=== PATIENT | male | born 1975 | race Caucasian/White ===

== ENCOUNTER → 2019-06-24 | Outpatient (CLI) | payer OTHER | END | disposition home or self-care (01) | LOC: LABWHC1 09:14 | PROVIDERS: ATTEND Family Medicine | DX: Z11.59 Encounter for screening for other viral diseases (principal) | CPT/HCPCS: 87635 ==

== ENCOUNTER 2022-02-27 00:16 | Observation (INO) | payer OTHER ==
[2022-02-27] MEDS ORDERED: DIPH,PERTUS(ACELL)TETVAC-LF 0.5 ML VIAL IM ONE (00:22)
[2022-02-27] MEDS ORDERED: LIDOCAINE 1% INJ 10MG/ML (30 ML VIAL-PF) SQ ONE (00:22)
[2022-02-27] MEDS ORDERED: KETOROLAC 15 MG/ML 1 ML VIAL IVP STA (00:23)
--- NOTE | 2022-02-27 01:06 | CT ---
EXAMINATION TYPE: CT brain saundraine wo con DATE OF EXAM: 02/27/2022 COMPARISON: None HISTORY: ETOH, pt fell & hit head on planter box, lac w/ exposed bone CT DLP: 1556.2 mGycm Automated exposure control for dose reduction was used. Images of the brain and cervical spine obtained with no contrast. There is large left frontal scalp hematoma. The ventricles have normal size. There is no mass effect or midline shift. No sign of intracranial hemorrhage. No evidence of skull fracture. Skull base is in tact. There is normal aeration of the mastoid sinuses. There is fluid level left maxillary sinus. The re is a blowout fracture of the left bony orbit with depression of the floor of the left bony orbit a nd herniation of orbital fat into the left maxillary sinus. The cervical vertebra have normal alignment. Disc spaces are fairly normal. Cervical facet joints siddharth ear intact. No significant disc space narrowing. No compression fracture. No subluxation. Prevertebra l soft tissues are intact. The skull base is intact. IMPRESSION: Negative CT scan of the cervical spine. No fracture. No acute intracranial abnormality. Blowout fracture of the floor of the left bony orbit. Large left frontal parietal scalp hematoma.
--- NOTE | 2022-02-27 01:59 | ED ---
Fall HPI - General Chief Complaint: Wound/Laceration Stated Complaint: Head Laceration Time Seen by Provider: 02/27/22 00:19 Source: patient, family, EMS, RN notes reviewed Mode of arrival: EMS - History of Present Illness Initial Comments: This is a 46-year-old male who presents to the emergency department for a head injury. Patient was intoxicated and stumbled around, causing him to fall forward, and land on a ceramic plantar. He subsequently acquired a laceration to his forehead. He did not lose consciousness and he does not take any blood thinners. He is unsure how much he had to drink. He is not in any significant pain at this time. Denies any fevers, chills, sore throat, cough, dyspnea, chest pain, palpitations, abdominal pain, nausea, vomiting, diarrhea, or back pain. MD Complaint: fall Fall From: standing Place Fall Occurred: home - Related Data Home Medications Medication Instructions Recorded Confirmed No Known Home Medications 02/27/22 02/27/22 Allergies Allergy/AdvReac Type Severity Reaction Status Date / Time No Known Allergies Allergy Verified 02/27/22 12:33 Review of Systems ROS Statement: Those systems with pertinent positive or pertinent negative responses have been documented in the HPI. ROS Other: All systems not noted in ROS Statement are negative. Past Medical History - Past Family History family Additional Family Medical History / Comment(s): no cad General Exam General appearance: alert, in no apparent distress Head exam: Present: other (10 cm laceration to the forehead with active bleeding and visible skull.) Eye exam: Present: PERRL, EOMI, other (Orbital and periorbital swelling with overlying ecchymosis.) Respiratory exam: Present: normal lung sounds bilaterally. Absent: respiratory distress, wheezes, rales, rhonchi, stridor Cardiovascular Exam: Present: regular rate, normal rhythm, normal heart sounds. Absent: systolic murmur, diastolic murmur, rubs, gallop, clicks Neurological exam: Present: alert Psychiatric exam: Present: normal affect, normal mood Course Vital Signs 02/27/22 02/27/22 02/27/22 00:21 00:48 01:30 Temperature 98 F 98.4 F Pulse Rate 72 101 H 110 H Pulse Rate [ Pulse Oximetery ] Respiratory 18 16 16 Rate Blood Pressure 155/86 180/142 168/124 Blood Pressure [Left Arm] O2 Sat by Pulse 99 99 98 Oximetry 02/27/22 02/27/22 02/27/22 02:00 02:28 06:07 Temperature Pulse Rate 108 H 98 112 H Pulse Rate [ Pulse Oximetery ] Respiratory 16 16 16 Rate Blood Pressure 125/91 122/99 97/66 Blood Pressure [Left Arm] O2 Sat by Pulse 97 98 99 Oximetry 02/27/22 06:33 Temperature 97.3 F L Pulse Rate Pulse Rate [ 115 H Pulse Oximetery ] Respiratory 16 Rate Blood Pressure Blood Pressure 101/62 [Left Arm] O2 Sat by Pulse 98 Oximetry Procedures - Laceration Laceration #1 Consent Obtained: verbal consent Indication: laceration Site: face Size (cm): 10 Description: linear, flap Depth: simple, single layer Anesthetic Used: lidocaine 1% Anesthesia Technique: local infiltration Amount (mls): 10 Pre-repair: irrigated extensively Type of Sutures: nylon Size of Sutures: 5-0 Number of Sutures: 26 Technique: simple, interrupted Medical Decision Making - Medical Decision Making This is a 46-year-old male who presents to the emergency department for a head injury. Was pt. sent in by a medical professional or institution? @ -No Did you speak to anyone other than the patient for history? @ -EMS Did you review nursing and triage notes? @ -Yes, and I agree, it is accurate with regards to the patient's symptoms. Were old charts reviewed? @ -No Differential Diagnosis? @ Differential Diagnosis Head Injury: -Contusion, hematoma, intracranial hemorrhage, skull fracture, whiplash, concussion, this is not meant to be an all-inclusive list. CT interpreted by me (1pt min.)? @ -Computed tomography scan of the brain and c-spine obtained. My interpretation of the computed tomography scan of the brain identifies no acute intracranial hemorrhage, there is an orbital blowout fracture on the left side. My interpretation of the computed tomography scan of the cervical spine identifies no acute fractures. What testing was considered but not performed? (CT, X-rays, U/S, labs)? Why? @ -None What meds were considered but not given? Why? @ -None Did you discuss the management of the patient with other professionals? @ -Yes, Dr. Del Castillo who accepts the patient for a trauma admission and Dr. Cain who will medically manage the patient, especially with regards to the CIWA protocol. Did you reconcile home meds? @ -No Was smoking cessation discussed for >3mins.? @ -No Was critical care preformed (if so, how long)? @ -No Were there social determinants of health that impacted care today? How? (Homelessness, low income, unemployed, alcoholism, drug addiction, transportat ion, low edu. Level, literacy, decrease access to med. care, halfway, rehab)? @ -Alcoholism Was there de-escalation of care discussed even if they declined? (Discuss DNR or withdrawal of care, Hospice)? @ -No What co-morbidities impacted this encounter? (DM, HTN, Smoking, COPD, CAD, Cancer, CVA, Hep., AIDS, mental health diagnosis, sleep apnea, morbid obesity)? @ -HTN Was patient admitted / discharged? @ -Admitted. Computed tomography scan of the brain and c-spine obtained, with findings consistent with a left orbital blowout fracture. The laceration to the forehead was sutured. His tetanus status was updated. BAT was 0.12. After the sutures were placed, whenever the patient would sit up, he became disoriented followed by a couple of seconds of unresponsiveness. Patient appears to be having orthostatic episodes, which were occurring anytime he tried to sit up. Given the concern for the patient's safety with the orthostatic episodes, patient will be admitted for observation and management with IV fluids. Because this was a fall, patient will be admitted to trauma. Medicine consulted for medical management, including the CIWA protocol. Undiagnosed new problem with uncertain prognosis? @ -None Drug Therapy requiring intensive monitoring for toxicity (Heparin, Nitro, Insulin, Cardizem)? @ -None Were any procedures done? @ -Yes, laceration repair with sutures. Diagnosis/symptom? @ -Forehead laceration Acute, or Chronic, or Acute on Chronic? @ -Acute Uncomplicated (without systemic symptoms) or Complicated (systemic symptoms)? @ -Uncomplicated Side effects of treatment? @ -None Exacerbation, Progression, or Severe Exacerbation] @ -Not applicable Poses a threat to life or bodily function? @ -No Diagnosis/symptom? @ -Alcohol intoxication Acute, or Chronic, or Acute on Chronic? @ -Acute Uncomplicated (without systemic symptoms) or Complicated (systemic symptoms)? @ -Complicated Side effects of treatment? @ -None Exacerbation, Progression, or Severe Exacerbation] @ -Not applicable Poses a threat to life or bodily function? @ -Yes Diagnosis/symptom? @ -Fall Acute, or Chronic, or Acute on Chronic? @ -Acute Uncomplicated (without systemic symptoms) or Complicated (systemic symptoms)? @ -Uncomplicated Side effects of treatment? @ -None Exacerbation, Progression, or Severe Exacerbation] @ -Not applicable Poses a threat to life or bodily function? @ -Yes This case was discussed in detail with the attending ED physician, Dr. Cordero. Presentation, findings, and treatment plan discussed in detail as well. - Lab Data Result diagrams: 02/27/22 04:34 02/27/22 04:34 - Radiology Data Radiology results: report reviewed, image reviewed Disposition Clinical Impression: Laceration, Fall, Head injury Disposition: ADMITTED IP TO THIS HOSP
[2022-02-27] MEDS ORDERED: SODIUM CHLORIDE 0.9% 1,000 ML IV STA ×2 (04:14)
[2022-02-27] MEDS ORDERED: KETOROLAC 15 MG/ML 1 ML VIAL IVP PRN (04:17)
[2022-02-27] MEDS ORDERED: ONDANSETRON 4 MG/2 ML VIAL IVP PRN (04:17)
[2022-02-27] MEDS ORDERED: NALOXONE 0.4 MG/ML 1 ML VIAL IV PRN (04:17)
[2022-02-27] MEDS ORDERED: LORazepam 2 MG/ML INJ IV PRN (04:18)
[2022-02-27] MEDS ORDERED: LORazepam 1 MG TAB PO PRN ×4 (04:18)
[2022-02-27] MEDS ORDERED: LORazepam 0.5 MG TAB PO PRN (04:18)
[2022-02-27] MEDS ORDERED: THIAMINE 100 MG/ML 2 ML VIAL IM STA (04:18)
--- NOTE | 2022-02-27 04:44 | P.HPIM ---
History of Present Illness H&P Date: 02/27/22 Chief Complaint: fall and head laceration 46 year old male with hypertension not currently taking any meds patient coming in after sustaining a fall and hitting ceramic planter. he was brought to the hospital due to bleeding. he denies any focal neuro deficits, he reports discomfort at site of injury , patient required multiple stitches to the area. imaging with brain CT showed blowout fracture of the floor left bony orbit . patient admits to occasional heavy drinking, he had half a pint and few shots today. he denies any other medical concerns or active medical issues. he denies any chest pain , trouble breathing, denies any new focal neuro deficits. no blood work available at this time patient denies any illicit drugs patient feeling dizzy when sitting up, Im concerned regarding the amount of bleeding he had in addition to dehydration from heavy drinking Review of Systems Pertinent positives as noted in HPI. All other systems were reviewed and are negative Past Medical History Past Medical History: Hypertension - Past Family History family Additional Family Medical History / Comment(s): no cad Medications and Allergies Allergies Allergy/AdvReac Type Severity Reaction Status Date / Time No Known Allergies Allergy Verified 02/27/22 00:24 Physical Exam Vitals: Vital Signs Temp Pulse Resp BP Pulse Ox 02/27/22 02:28 98 16 122/99 98 02/27/22 02:00 108 H 16 125/91 97 02/27/22 01:30 110 H 16 168/124 98 02/27/22 00:48 98.4 F 101 H 16 180/142 99 02/27/22 00:21 98 F 72 18 155/86 99 Intake and Output 02/26/22 02/26/22 02/27/22 14:59 22:59 06:59 Other: Weight 92.533 kg Constitutional: No acute distress, conversant, pleasant Eyes: left eye swollen shut with bruising, right Pupils round reactive to light ENMT: NC/ significant trauma to the head, resulting in large frontoparietal scalp laceration requiring multiple stitches , with significant amount of bleeding, and large echymosis over left eye which is close shut. Oropharynx clear, no erythema, or exudates Neck: Supple, no masses, or JVD No carotid bruits No thyromegaly Lungs: Clear to auscultation Clear to percussion Normal respiratory effort, no accessory muscle use Cardiovascular: Heart regular in rate and rhythm, No murmurs, gallops, or rubs No peripheral edema Abdominal: Soft Nontender, no guarding, rebound or rigidity Abdomen moving with respiration Normoactive bowel sounds No hepatomegaly, No splenomegaly No palpable mass No abdominal wall hernia noted Skin: laceration of the scalp , otherwise Normal temperature, tone, texture, turgor Extremities: No digital cyanosis No clubbing Pedal pulses intact and symmetrical Radial pulses intact and symmetrical No calf tenderness Psychiatric: Alert and oriented to person, place and time Appropriate affect fair judgement Neuro Muscles Strength 5/5 in all 4 extremities Sensation to light touch grossly present throughout Cranial nerves II-XII grossly intact Lymphatics: no palpable cervical or supraclavicular lymph nodes Assessment and Plan Assessment: blowout fracture of the left bony orbit alcohol intoxication , fall laceration of the left frontoparietal scalp s/p suturing in the ED. management per trauma surgery fall precautions IVF hydration with normal saline check CBC, concerns regarding significant amount of bleeding from large scalp injury check electrolytes, alcohol level , and urine drug screen check orthostatic vitals monitor for alcohol withdrawal symptoms Benzo PRN per ciwa thiamine fall precautions full code DVT PPX mechanical thank you for this consultation
[2022-02-27 04:53] LABS: Basophils # (A) 0.1 k/uL (0-0.2); Basophils % (A) 1 %; Eosinophils % (A) 0 %; HCT 34.3 % (39.0-53.0); HGB 11.8 gm/dL (13.0-17.5); Lymphocytes # (A) 1.2 k/uL (1.0-4.8); Lymphocytes % (A) 10 %; MCH 30.5 pg (25.0-35.0); MCHC 34.4 g/dL (31.0-37.0); MCV 88.7 fL (80.0-100.0); Monocytes # (A) 0.5 k/uL (0-1.0); Monocytes % (A) 5 %; Neutrophils % (A) 84 %; Platelet Count 274 k/uL (150-450); RBC 3.87 m/uL (4.30-5.90); RDW 12.8 % (11.5-15.5)
[2022-02-27 05:06] LABS: ALT 81 U/L (4-49); AST 85 U/L (17-59); African American GFR (CKD) >90 (>60 ml/min/1.73 sqM); Albumin 2.9 g/dL (3.5-5.0); Alkaline Phosphatase 58 U/L (38-126); Anion Gap 7 mmol/L; Blood Urea Nitrogen 6 mg/dL (9-20); Calcium 7.3 mg/dL (8.4-10.2); Carbon Dioxide 20 mmol/L (22-30); Chloride 112 mmol/L (98-107); Glucose 159 mg/dL (74-99); Non-African American GFR(CKD) 87 (>60 ml/min/1.73 sqM); Sodium 139 mmol/L (137-145); Total Bilirubin 0.5 mg/dL (0.2-1.3); Total Protein 5.7 g/dL (6.3-8.2)
[2022-02-27 05:32] LABS: Alcohol 204 mg/dL
--- NOTE | 2022-02-27 13:28 | P.PN ---
Progress Note - Text Progress Note Date: 02/27/22 Hospitalist Interval Note Patient seen and examined at bedside. Vital signs reviewed General: non toxic, no distress, appears at stated age Derm: warm, dry Head: Sutured laceration on frontal hiatal scalp Eyes: Left eye periorbital ecchymosis Mouth: no lip lesion, mucus membranes moist Cardiovascular: S1S2 reg, no murmur, positive posterior tibial pulse bilateral, Lungs: CTA bilateral, no rhonchi, no rales , no accessory muscle use Abdominal: soft, nontender to palpation, no guarding, no appreciable organomegaly Ext: no gross muscle atrophy, no edema, no contractures Neuro: CN II-XI grossly intact, no focal neuro deficits Psych: Alert, oriented, appropriate affect Assessment/Plan: blowout fracture of the left bony orbit alcohol intoxication , fall laceration of the left frontoparietal scalp s/p suturing in the ED. management per trauma surgery - iv fluids - thiamine - benzo PRN per CIWA This is an update note for patient. There is no charge associated with this note.
[2022-02-27] MEDS: ACETAMINOPHEN TAB 325 MG TAB PO PRN ×2 (13:34→20:40)
[2022-02-27 13:44] VITALS: RESP 18
--- NOTE | 2022-02-27 16:06 | P.GSHP ---
History of Present Illness H&P Date: 02/27/22 REASON FOR ADMISSION: Alcohol intoxication with status post fall, head trauma HISTORY OF PRESENT ILLNESS: The patient is a 46 year old male who presented to the emergency room with bleeding from a scalp after falling ground-level at home due to alcohol intoxication. Patient has minimal recollection of where he fell at home. Patient in the emergency room had repair of his scalp laceration with subsequent hematoma. Patient reports developing a black eye of the left eye. Reports he can see through his left eye. "I will stop drinking." Patient was admitted due to persistent hypotension after attempting to sit up. PAST MEDICAL HISTORY: See list and reviewed PAST SURGICAL HISTORY: See list and reviewed MEDICATIONS: See list and reviewed ALLERGIES: See list and reviewed SOCIAL HISTORY: See list and reviewed FAMILY HISTORY: See list and reviewed REVIEW OF ORGAN SYSTEMS: CONSTITUTIONAL: No fevers or chills. No recent weight loss. EYES: Denies any trouble with vision. No glasses. HEENT: No difficulties with hearing. No nosebleeds. No difficulty swallowing. RESPIRATORY: Denies pneumonia. Denies any troubles with breathing or dyspnea on exertion. CARDIOVASCULAR: Denies any chest pain, palpitations, or recent heart attacks. Has hypertension. GASTROINTESTINAL: Has alcohol abuse disorder. GENITOURINARY: Denies any blood in urine or increased urinary frequency. NEUROLOGICAL: Denies any numbness or tingling along the distal extremities. No seizure disorders or headaches. MUSCULOSKELETAL: Denies any back pain, stiffness or joint arthritis. SKIN: No current skin cancer. No rash. PSYCHIATRIC: Denies current depression or suicidal thoughts. ENDOCRINE: Denies current thyroid disorders. Denies any blood sugar glucose intolerance. HEME/LYMPHATIC: Denies any lumps and bumps around the neck. No recent deep venous thrombosis. ALLERGY/IMMUNOLOGY: No immunoglobulin therapy. No immune deficiencies. BREAST: Denies current breast lumps, pain or nipple discharge. PHYSICAL EXAM: VITALS: Reviewed CONSTITUTIONAL: Well developed and in no acute distress. EYES: Ecchymosis over her left eye in orbit completely closed. Patient able to open his left eye on its own. Denies eye pain. HEAD, EARS, NOSE, THROAT: Moist buccal mucosa. Multiple lacerations along the face, forehead, cheeks with ecchymosis at the left side. Scalp hematoma NECK: Cervical spine without tenderness. RESPIRATORY: Non-labored respirations and equal bilateral excursions. No gross wheezes. CARDIOVASCULAR: Palpable 2+ radial pulses. ABDOMEN: Nontender. LYMPH: No neck lymphadenopathy. MUSCULOSKELETAL: Nail and fingers with good capillary refill. SKIN: Warm and well perfused with good skin turgor. NEUROLOGIC: Cranial nerves II through XII grossly intact. No focal or latera lizing signs. PSYCH: Appropriate affect. Alert and oriented to person, place and time. Displays appropriate insight. CLINCAL LABS: Reviewed. 12.0. Hemoglobin 11.8. LFTs elevated. EtOH elevated 204 IMAGING: Independently reviewed. CT of the brain without epidural subdural hematoma. This is my independent interpretation. RADIOLOGY: Report reviewed CT brain demonstrates no spinal injury. Also presence of scalp hematoma. No intracranial bleed. Left orbit fracture ASSESSMENT: 1. Status post ground-level fall due to increased intoxication 2. Acute alcohol intoxication 3. Left orbit fracture 4. Scalp hematoma PLAN: 1. IV fluid hydration. 2. Medicine consulted for management of alcohol withdrawal and delirium tremens 3. Consultation services regarding left orbital fracture 4. Repeat CBC and CMP due to abnormalities Thank you for this kind consultation. Past Medical History Past Medical History: Hypertension History of Any Multi-Drug Resistant Organisms: None Reported Past Anesthesia/Blood Transfusion Reactions: No Reported Reaction Smoking Status: Former smoker Past Alcohol Use History: Heavy, Occasional Additional Past Alcohol Use History / Comment(s): pt states he doesnt drink every day but when he does he "drinks the heavy stuff" States he quit smoking in 2019 - Past Family History family Additional Family Medical History / Comment(s): no cad Medications and Allergies Home Medications Medication Instructions Recorded Confirmed Type No Known Home Medications 02/27/22 02/27/22 History Allergies Allergy/AdvReac Type Severity Reaction Status Date / Time No Known Allergies Allergy Verified 02/27/22 12:33 Surgical - Exam Vital Signs Temp Pulse Resp BP Pulse Ox 98 F 72 18 155/86 99 02/27/22 00:21 02/27/22 00:21 02/27/22 00:21 02/27/22 00:21 02/27/22 00:21 Results - Labs 02/27/22 04:34 02/27/22 04:34 Abnormal Lab Results - Last 24 Hours (Table) 02/27/22 02/27/22 Range/Units 04:34 04:34 WBC 12.0 H (3.8-10.6) k/uL RBC 3.87 L (4.30-5.90) m/uL Hgb 11.8 L (13.0-17.5) gm/dL Hct 34.3 L (39.0-53.0) % Neutrophils # 10.0 H (1.3-7.7) k/uL Chloride 112 H (98-107) mmol/L Carbon Dioxide 20 L (22-30) mmol/L BUN 6 L (9-20) mg/dL Glucose 159 H (74-99) mg/dL Calcium 7.3 L (8.4-10.2) mg/dL AST 85 H (17-59) U/L ALT 81 H (4-49) U/L Total Protein 5.7 L (6.3-8.2) g/dL Albumin 2.9 L (3.5-5.0) g/dL Serum Alcohol 204 H* mg/dL Diabetes panel 02/27/22 Range/Units 04:34 Sodium 139 (137-145) mmol/L Potassium 4.0 (3.5-5.1) mmol/L Chloride 112 H (98-107) mmol/L Carbon Dioxide 20 L (22-30) mmol/L BUN 6 L (9-20) mg/dL Creatinine 1.04 (0.66-1.25) mg/dL Glucose 159 H (74-99) mg/dL Calcium 7.3 L (8.4-10.2) mg/dL AST 85 H (17-59) U/L ALT 81 H (4-49) U/L Alkaline Phosphatase 58 (38-126) U/L Total Protein 5.7 L (6.3-8.2) g/dL Albumin 2.9 L (3.5-5.0) g/dL Calcium panel 02/27/22 Range/Units 04:34 Calcium 7.3 L (8.4-10.2) mg/dL Albumin 2.9 L (3.5-5.0) g/dL Pituitary panel 02/27/22 Range/Units 04:34 Sodium 139 (137-145) mmol/L Potassium 4.0 (3.5-5.1) mmol/L Chloride 112 H (98-107) mmol/L Carbon Dioxide 20 L (22-30) mmol/L BUN 6 L (9-20) mg/dL Creatinine 1.04 (0.66-1.25) mg/dL Glucose 159 H (74-99) mg/dL Calcium 7.3 L (8.4-10.2) mg/dL Adrenal panel 02/27/22 Range/Units 04:34 Sodium 139 (137-145) mmol/L Potassium 4.0 (3.5-5.1) mmol/L Chloride 112 H (98-107) mmol/L Carbon Dioxide 20 L (22-30) mmol/L BUN 6 L (9-20) mg/dL Creatinine 1.04 (0.66-1.25) mg/dL Glucose 159 H (74-99) mg/dL Calcium 7.3 L (8.4-10.2) mg/dL Total Bilirubin 0.5 (0.2-1.3) mg/dL AST 85 H (17-59) U/L ALT 81 H (4-49) U/L Alkaline Phosphatase 58 (38-126) U/L Total Protein 5.7 L (6.3-8.2) g/dL Albumin 2.9 L (3.5-5.0) g/dL Assessment and Plan (1) Scalp hematoma Current Visit: Yes Status: Acute Code(s): S00.03XA - CONTUSION OF SCALP, INITIAL ENCOUNTER SNOMED Code(s): 723536197 (2) Scalp laceration Current Visit: Yes Status: Acute Code(s): S01.01XA - LACERATION WITHOUT FO REIGN BODY OF SCALP, INITIAL ENCOUNTER SNOMED Code(s): 330284002 (3) Left orbit fracture Current Visit: Yes Status: Acute Code(s): S02.85XA - FRACTURE OF ORBIT, UNSPECIFIED, INIT SNOMED Code(s): 85963623 (4) Acute alcohol intoxication Current Visit: Yes Status: Acute Code(s): F10.929 - ALCOHOL USE, UNSPECIFIED WITH INTOXICATION, UNSPECIFIED SNOMED Code(s): 9549610576 (5) Elevated LFTs Current Visit: Yes Status: Acute Code(s): R79.89 - OTHER SPECIFIED ABNORMAL FINDINGS OF BLOOD CHEMISTRY SNOMED Code(s): 873872336 (6) Fall from ground level Current Visit: Yes Status: Acute Code(s): W18.30XA - FALL ON SAME LEVEL, UNSPECIFIED, INITIAL ENCOUNTER SNOMED Code(s): 64481862 (7) Head injury Current Visit: Yes Status: Acute Code(s): S09.90XA - UNSPECIFIED INJURY OF HEAD, INITIAL ENCOUNTER SNOMED Code(s): 26546452
[2022-02-27 23:12] LABS: Urine Alcohol Positive (Negative); Urine Barbiturate Negative (Negative); Urine Cocaine Negative (Negative); Urine Methadone Negative (Negative); Urine Opiates Negative (Negative); Urine Phencyclidine Negative (Negative)
[2022-02-28] MEDS: ACETAMINOPHEN TAB 325 MG TAB PO PRN (03:17)
[2022-02-28] MEDS ORDERED: THIAMINE 100 MG TAB PO SCH (09:00)
[2022-02-28 10:03] LABS: Basophils # (A) 0.1 k/uL (0-0.2); Basophils % (A) 1 %; Eosinophils % (A) 1 %; HCT 27.8 % (39.0-53.0); Lymphocytes # (A) 1.8 k/uL (1.0-4.8); Lymphocytes % (A) 28 %; MCV 88.3 fL (80.0-100.0); Mean Platelet Volume 9.2; Monocytes # (A) 0.4 k/uL (0-1.0); Monocytes % (A) 7 %; Neutrophils % (A) 62 %; Platelet Count 167 k/uL (150-450); RBC 3.15 m/uL (4.30-5.90); RDW 12.9 % (11.5-15.5); WBC 6.4 k/uL (3.8-10.6)
[2022-02-28 10:17] LABS: ALT 56 U/L (4-49); AST 43 U/L (17-59); African American GFR (CKD) >90 (>60 ml/min/1.73 sqM); Albumin 3.3 g/dL (3.5-5.0); Albumin/Globulin Ratio 1.1; Alcohol <10 mg/dL; Alkaline Phosphatase 60 U/L (38-126); Anion Gap 4 mmol/L; Blood Urea Nitrogen 7 mg/dL (9-20); Carbon Dioxide 29 mmol/L (22-30); Chloride 104 mmol/L (98-107); Globulin 2.9 g/dL; Glucose 152 mg/dL (74-99); HGB 9.4 gm/dL (13.0-17.5); Non-African American GFR(CKD) >90 (>60 ml/min/1.73 sqM); Potassium 3.5 mmol/L (3.5-5.1); Sodium 137 mmol/L (137-145); Total Bilirubin 1.2 mg/dL (0.2-1.3); Total Protein 6.2 g/dL (6.3-8.2)
--- NOTE | 2022-02-28 12:22 | P.PN ---
Subjective Progress Note Date: 02/28/22 CHIEF COMPLAINT: Alcohol intoxication status post fall with head trauma HISTORY OF PRESENT ILLNESS: Patient lying in bed comfortably. He reports that his pain is controlled. He had alcohol intoxication with fall and head trauma. He had evidence of a left orbital fracture. Consult has been switched to ophthalmology. Patient is unable to open the left eye. He denies any new pain. Denies any nausea vomiting. Afebrile. Tachycardia has improved. BP elevated. WBC is down from 12-6.4 hemoglobin is down from 11.8-9.4 platelets are 167 sons 137 potassium is 3.5 creatinine 0.76 alcohol level is down from 204-10 PHYSICAL EXAM: VITAL SIGNS: Reviewed GENERAL: Well-developed in no acute distress. HEENT: Patient has a laceration on the forehead with sutures. His left eye is closed shut with bruising. There is also bruising noted under the right eye. Head is atraumatic, normocephalic. Hears conversational speech. No nasal drainage. NECK: Supple without lymphadenopathy. CHEST: Non-labored respirations and equal bilateral excursions. CARDIOVASCULAR: Palpable 2+ radial pulses. ABDOMEN: Soft. Nondistended. Nontender. MUSCULOSKELETAL: No clubbing or cyanosis. NEUROLOGIC: No focal or lateralizing signs. Cranial nerves II through XII grossly intact. PSYCH: Appropriate affect. Alert and oriented to person, place and time. SKIN: Well perfused. Good skin turgor. ASSESSMENT: 1. Status post ground-level fall due to increased intoxication 2. Acute alcohol intoxication 3. Left orbit fracture 4. Scalp hematoma PLAN: -Awaiting ophthalmology evaluation regarding left orbital fracture -Continue IV fluids -Continue CIWA protocol for alcohol withdrawal -Continue ice packs as needed -Continue supportive care -Anticipate discharge possibly today if cleared by ophthalmology Physician Human Resources Safety Manager note has been reviewed by physician. Signing provider agrees with the documented findings, assessment, and plan of care. CHIEF COMPLAINT: Alcohol intoxication with status post fall, head trauma HISTORY OF PRESENT ILLNESS: The patient is a 46 year old male admitted to the hospital for head trauma status post fall. This morning, he feels well. No reports of abdominal pain. REVIEW OF ORGAN SYSTEMS: GASTROINTESTINAL: Has alcohol abuse disorder. MUSCULOSKELETAL: Denies any back pain, stiffness or joint arthritis. PSYCHIATRIC: Denies current depression or suicidal thoughts. PHYSICAL EXAM: VITALS: Reviewed CONSTITUTIONAL: Well developed and in no acute distress. EYES: Ecchymosis over her left eye in orbit completely closed. Patient able to open his left eye on its own. Denies eye pain. Ecchymosis over her right eye HEAD, EARS, NOSE, THROAT: Moist buccal mucosa. Multiple lacerations along the face, forehead, cheeks with ecchymosis at the left side. Scalp hematoma NECK: Cervical spine without tenderness. RESPIRATORY: Non-labored respirations and equal bilateral excursions. No gross wheezes. CARDIOVASCULAR: Palpable 2+ radial pulses. ABDOMEN: Nontender. MUSCULOSKELETAL: Nail and fingers with good capillary refill. SKIN: Warm and well perfused with good skin turgor. NEUROLOGIC: Cranial nerves II through XII grossly intact. No focal or l ateralizing signs. PSYCH: Appropriate affect. Alert and oriented to person, place and time. Displ ays appropriate insight. CLINCAL LABS: Reviewed. Repeat labs demonstrate WBC normal. Hemoglobin decline 11.8 down to 9.4. LFTs improving. EtOH negative. ASSESSMENT: 1. Status post ground-level fall due to increased intoxication 2. Acute alcohol intoxication 3. Left orbit fracture 4. Scalp hematoma PLAN: 1. Consultation placed to ophthalmology for left orbit fracture 2. Alcohol abstinence reviewed 3. Discharge pending outpatient follow-up with baby registry sales consultant regarding left orbit fracture 4. Follow-up with PCP for transition of care Objective - Vital Signs Vital signs: Vital Signs Temp 98 F 02/28/22 07:00 Pulse 98 02/28/22 08:00 Resp 18 02/28/22 08:00 BP 179/99 02/28/22 07:00 Pulse Ox 96 02/28/22 07:00 FiO2 Intake & Output 02/27/22 02/28/22 02/28/22 18:59 06:59 18:59 Intake Total 120 Output Total 1000 Balance -880 Intake: Oral 120 Output: Urine 1000 Other: # Voids 2 3 - Labs CBC & Chem 7: 02/28/22 09:52 02/28/22 09:52 Labs: Abnormal Lab Results - Last 24 Hours (Table) 02/27/22 02/28/22 02/28/22 Range/Units 17:56 09:52 09:52 RBC 3.15 L (4.30-5.90) m/uL Hgb 9.4 L D (13.0-17.5) gm/dL Hct 27.8 L (39.0-53.0) % BUN 7 L (9-20) mg/dL Glucose 152 H (74-99) mg/dL Calcium 8.0 L (8.4-10.2) mg/dL ALT 56 H (4-49) U/L Total Protein 6.2 L (6.3-8.2) g/dL Albumin 3.3 L (3.5-5.0) g/dL Urine Alcohol Positive A (Negative)
--- NOTE | 2022-02-28 12:53 | P.PN ---
Subjective Progress Note Date: 02/28/22 Subjective: Patient seen and examined at bedside. No acute events overnight. He claims that the pain is a lot better. He denies any anxiety or tremulousness. He denies any chest pain, shortness of breath, abdominal pain, nausea, vomiting, diarrhea, constipation, or urinary complaints. Pertinent positives and negatives as discussed above, a complete review of systems was performed and all other systems are negative. Vitals Signs Reviewed. General: non toxic, no distress, appears at stated age Derm: warm, dry Head: Sutured laceration on frontal hiatal scalp Eyes: Left eye periorbital ecchymosis Mouth: no lip lesion, mucus membranes moist Cardiovascular: S1S2 reg, no murmur, positive posterior tibial pulse bilateral, Lungs: CTA bilateral, no rhonchi, no rales , no accessory muscle use Abdominal: soft, nontender to palpation, no guarding, no appreciable organomegaly Ext: no gross muscle atrophy, no edema, no contractures Neuro: CN II-XI grossly intact, no focal neuro deficits Psych: Alert, oriented, appropriate affec Assessment and Plan: blowout fracture of the left bony orbit alcohol intoxication , fall laceration of the left frontoparietal scalp s/p suturing in the ED. - management per trauma surgery - s/p IV fluids - thiamine - benzo PRN per CIWA - Pending ophthalmology evaluation History of hypertension -Not on any medications -current BP trending up likely 2/2 withdrawal and pain -needs outpatient follow up Patient medically optimized for discharge home. Patient will follow up closely with alcohol rehab program. Thank you for allowing us to participate in the care of this pleasant patient. Do not hesitate to contact us with questions. Someone can be reached from the [facility] hospitalist group all hours of the day at [phone] or via [employer]. Objective - Vital Signs Vital signs: Vital Signs Temp 98 F 02/28/22 07:00 Pulse 98 02/28/22 08:00 Resp 18 02/28/22 08:00 BP 179/99 02/28/22 07:00 Pulse Ox 96 02/28/22 07:00 FiO2 Intake & Output 02/27/22 02/28/22 02/28/22 18:59 06:59 18:59 Intake Total 120 Output Total 1000 Balance -880 Intake: Oral 120 Output: Urine 1000 Other: # Voids 2 3 - Labs CBC & Chem 7: 02/28/22 09:52 02/28/22 09:52 Labs: Abnormal Lab Results - Last 24 Hours (Table) 02/27/22 02/28/22 02/28/22 Range/Units 17:56 09:52 09:52 RBC 3.15 L (4.30-5.90) m/uL Hgb 9.4 L D (13.0-17.5) gm/dL Hct 27.8 L (39.0-53.0) % BUN 7 L (9-20) mg/dL Glucose 152 H (74-99) mg/dL Calcium 8.0 L (8.4-10.2) mg/dL ALT 56 H (4-49) U/L Total Protein 6.2 L (6.3-8.2) g/dL Albumin 3.3 L (3.5-5.0) g/dL Urine Alcohol Positive A (Negative)
--- NOTE | 2022-02-28 15:09 | P.DS ---
Providers Date of admission: 02/27/22 04:18 Expected date of discharge: 02/28/22 Attending physician: Jeane Del Castillo Consults: 02/27/22 04:17 Consult Physician Urgent Consulting Provider: Orlando Cain Consult Reason/Comments: Medical management and CIWA protocol Do you want consulting provider notified?: Yes 02/28/22 11:35 Consult Physician Routine Consulting Provider: Moe Wolf Consult Reason/Comments: left orbial fracture, entrapment Do you want consulting provider notified?: Yes Primary care physician: [facility] Course: CHIEF COMPLAINT: Alcohol intoxication with status post fall, head trauma HISTORY OF PRESENT ILLNESS: The patient is a 46 year old male admitted to the hospital for head trauma status post fall. This morning, he feels well. No reports of abdominal pain. REVIEW OF ORGAN SYSTEMS: GASTROINTESTINAL: Has alcohol abuse disorder. MUSCULOSKELETAL: Denies any back pain, stiffness or joint arthritis. PSYCHIATRIC: Denies current depression or suicidal thoughts. PHYSICAL EXAM: VITALS: Reviewed CONSTITUTIONAL: Well developed and in no acute distress. EYES: Ecchymosis over her left eye in orbit completely closed. Patient able to open his left eye on its own. Denies eye pain. Ecchymosis over her right eye HEAD, EARS, NOSE, THROAT: Moist buccal mucosa. Multiple lacerations along the face, forehead, cheeks with ecchymosis at the left side. Scalp hematoma NECK: Cervical spine without tenderness. RESPIRATORY: Non-labored respirations and equal bilateral excursions. No gross wheezes. CARDIOVASCULAR: Palpable 2+ radial pulses. ABDOMEN: Nontender. MUSCULOSKELETAL: Nail and fingers with good capillary refill. SKIN: Warm and well perfused with good skin turgor. NEUROLOGIC: Cranial nerves II through XII grossly intact. No focal or lateralizing signs. PSYCH: Appropriate affect. Alert and oriented to person, place and time. Displays appropriate insight. CLINCAL LABS: Reviewed. Repeat labs demonstrate WBC normal. Hemoglobin decline 11.8 down to 9.4. LFTs improving. EtOH negative. ASSESSMENT: 1. Status post ground-level fall due to increased intoxication 2. Acute alcohol intoxication 3. Left orbit fracture 4. Scalp hematoma PLAN: 1. Consultation placed to ophthalmology for left orbit fracture 2. Alcohol abstinence reviewed 3. Discharge pending outpatient follow-up with animal nutrition consultant regarding left orbit fracture 4. Follow-up with PCP for transition of care Patient Condition at Discharge: Good Plan - Discharge Summary New Discharge Prescriptions: New Thiamine [Vitamin B-1] 100 mg PO DAILY #30 tab Acetaminophen Tab [Tylenol Tab] 650 mg PO Q4H PRN #30 tablet PRN Reason: Pain Discharge Medication List Acetaminophen Tab [Tylenol Tab] 650 mg PO Q4H PRN #30 tablet 02/28/22 [Rx] Thiamine [Vitamin B-1] 100 mg PO DAILY #30 tab 02/28/22 [Rx] Follow up Appointment(s)/Referral(s): Jeane Del Castillo MD [STAFF PHYSICIAN] - 03/08/22 Moe Wolf MD [STAFF PHYSICIAN] - 1 Week Grey Jackson DO [Primary Care Provider] - 1-2 days Patient Instructions/Handouts: Abuse of Alcohol (DC), Alcohol Withdrawal (DC) Discharge Disposition: HOME SELF-CARE
[2022-02-28 15:13] VITALS: BP 147/98; PULSE 102; TEMP 98.5
--- NOTE | 2022-03-01 03:09 | CONS ---
CONSULTATION HISTORY: This is a 46-year-old white male, who reports having fallen and striking his face on a wooden planter corner prior to admission on February____2022. The patient sustained blunt force trauma to his face and was seen and admitted through the emergency room. He is currently resting comfortably in his bed and does not have any reports of pain outside of that caused from his blunt trauma. Visual acuity measured 20/30 without correction bilaterally. The pupils were equal and reactive to light. There was no afferent defect. On penlight exam, there was obvious swelling to the periorbital regions with the left orbit being significantly more swollen than the right. There was severe ecchymosis around both upper and lower lids with the left being more affected than the right. The conjunctiva on the left side exhibited subconjunctival hemorrhage. The corneas appeared clear. The anterior chambers were well formed, and the irises were not distorted. The lenses appeared centered. Fundus exam revealed normal- appearing maculae, vessels, and discs. Extraocular movements, these appeared to be full in the right side with possible restriction of superior gaze in the left eye. The patient stated that he was not experiencing diplopia in any gaze position, however. The exam was limited due to the swelling of the left periorbital tissues. I was able to open them enough to see the globe. However, a good assessment of extraocular movements and superior gaze was not possible at this time. CT scan was positive for an orbital floor fracture of the left side with herniation of fat into the maxillary sinus on the left side and possible entrapment. IMPRESSION: Orbital fracture. It is very likely this patient will require a repair of his orbital bones, and a consult with an Ear, Nose, and Throat specialist would be indicated to facilitate the surgical repair. The repair is typically held off until a week to 10 days have passed to allow reduction of swelling to take place and also decrease bleeding at the time of repair. I asked the patient to refrain from blowing his nose as the entry of air into the orbital socket is possible and not helpful for future repair of this condition. Return appointment was recommended in my office in 1 week's time, at which point I would be able to better ascertain how much entrapment is present if any on the left eye. Thank you very much for this consult. MMODL / IJN: [id number] /
== END 2022-02-28 23:01 | disposition home or self-care (01) ==
LOC: EC 00:16 → 6NMEDSUR 04:18
PROVIDERS: ADMIT Surgery Plastic and Reconstructive Surgery; ATTEND Surgery Plastic and Reconstructive Surgery
DX: S02.85XA Fracture of orbit, unspecified, initial encounter for closed fracture (principal); S06.890A Other specified intracranial injury without loss of consciousness, initial encounter; W18.39XA Other fall on same level, initial encounter; F10.129 Alcohol abuse with intoxication, unspecified; R74.8 Abnormal levels of other serum enzymes; S00.03XA Contusion of scalp, initial encounter; I95.9 Hypotension, unspecified; I10 Essential (primary) hypertension; Z87.891 Personal history of nicotine dependence
CPT/HCPCS: 12015; 99284; 36415; 80053 ×2; 85025 ×2; 80306; 72125; 70450; 90715; G0378 ×2; G0480 ×2; J3411; J2001; J1885; 80320

== ENCOUNTER 2024-02-17 22:22 | Inpatient (IN) | payer BC, OTHER ==
[2024-02-17 23:20] LABS: ALT 36 U/L (4-49); AST 49 U/L (17-59); African American GFR (CKD) >90 (>60 ml/min/1.73 sqM); Alcohol <10 mg/dL; Alkaline Phosphatase 94 U/L (38-126); Amylase 45 U/L (30-110); Anion Gap 12 mmol/L; Blood Urea Nitrogen 8 mg/dL (9-20); Calcium 9.1 mg/dL (8.4-10.2); Carbon Dioxide 23 mmol/L (22-30); Chloride 102 mmol/L (98-107); Glucose 102 mg/dL (74-99); Lipase 114 U/L (23-300); Non-African American GFR(CKD) >90 (>60 ml/min/1.73 sqM); Sodium 137 mmol/L (137-145); Total Bilirubin 1.1 mg/dL (0.2-1.3); Total Protein 7.3 g/dL (6.3-8.2)
[2024-02-17 23:25] LABS: Basophils # (A) 0.1 k/uL (0-0.2); Basophils % (A) 1 %; Eosinophils # (A) 0.1 k/uL (0-0.7); Eosinophils % (A) 1 %; HCT 36.2 % (39.0-53.0); HGB 10.9 gm/dL (13.0-17.5); Hypochromasia Marked; Lymphocytes # (A) 1.3 k/uL (1.0-4.8); Lymphocytes % (A) 16 %; MCH 22.1 pg (25.0-35.0); MCHC 30.1 g/dL (31.0-37.0); MCV 73.4 fL (80.0-100.0); Mean Platelet Volume 7.4; Microcytosis Slight; Monocytes # (A) 0.6 k/uL (0-1.0); Monocytes % (A) 8 %; Neutrophils # (A) 5.9 k/uL (1.3-7.7); Neutrophils % (A) 72 %; Platelet Count 251 k/uL (150-450); RBC 4.94 m/uL (4.30-5.90); RDW 15.2 % (11.5-15.5); WBC 8.2 k/uL (3.8-10.6)
[2024-02-17 23:25] LABS: Appearance,Urine Clear (Clear); Bilirubin,Urine Negative (Negative); Blood,Urine Negative (Negative); Color,Urine Light Yellow; Glucose,Urine (UA) Negative (Negative); Ketones,Urine Negative (Negative); Leukocyte Esterase,Urine Negative (Negative); Mucus,Urine Rare /hpf; Nitrite,Urine Negative (Negative); PH, Urine 6.5 (5.0-8.0); Protein,Urine 2+ (Negative); RBC,Urine <1 /hpf (0-5); Specific Gravity,Urine 1.005 (1.001-1.035); WBC,Urine 1 /hpf (0-5)
[2024-02-17 23:28] LABS: NT-Pro-B-Type Natriuretic Pept 2010 pg/mL
--- NOTE | 2024-02-18 00:17 | ED ---
Abdominal Pain HPI - General Chief Complaint: Abdominal Pain Stated Complaint: Abd pain, foot and ankle swelling Time Seen by Provider: 02/17/24 22:56 Source: patient Mode of arrival: ambulatory - History of Present Illness Initial Comments: 48-year-old male presenting with chief complaint of swelling to the abdomen and lower extremities. Patient states that his bilateral lower extremities started swelling around 02/05. Patient states that today he notes significant abdominal swelling and he is very uncomfortable in the lower abdomen. Patient is a daily drinker, last drink was 02/05. No chest pain. Patient has some difficulty breathing when he sits or lays down which he attributes to his stomach pushing up on his chest. He has a mild cough. No fever. No nausea, vomiting, diarrhea, hematochezia, melena. - Related Data Home Medications Medication Instructions Recorded Confirmed No Known Home Medications 02/18/24 02/18/24 Allergies Allergy/AdvReac Type Severity Reaction Status Date / Time No Known Allergies Allergy Verified 02/18/24 09:38 Review of Systems ROS Statement: Those systems with pertinent positive or pertinent negative responses have been documented in the HPI. ROS Other: All systems not noted in ROS Statement are negative. Past Medical History Past Medical History: Hypertension History of Any Multi-Drug Resistant Organisms: None Reported Past Surgical History: No Surgical Hx Reported Past Anesthesia/Blood Transfusion Reactions: No Reported Reaction Smoking Status: Vaper Past Alcohol Use History: Heavy, Occasional Past Drug Use History: None Reported - Past Family History family Additional Family Medical History / Comment(s): no cad General Exam General appearance: alert, in no apparent distress Head exam: Present: atraumatic, normocephalic, normal inspection Eye exam: Present: normal appearance, EOMI Neck exam: Present: normal inspection. Absent: meningismus Respiratory exam: Present: normal lung sounds bilaterally. Absent: respiratory distress, wheezes, rales, rhonchi, stridor Cardiovascular Exam: Present: normal rhythm, tachycardia, normal heart sounds. Absent: systolic murmur, diastolic murmur, rubs, gallop, clicks GI/Abdominal exam: Present: distended, tenderness (Lower abdomen) Expanded GI/Abdominal exam: Present: ascites Neurological exam: Present: alert, oriented X3 Psychiatric exam: Present: normal affect, normal mood Skin exam: Present: warm, dry Course Vital Signs 02/17/24 02/18/24 02/18/24 22:30 00:24 02:00 Temperature 98.2 F Pulse Rate 120 H 109 H 107 H Respiratory 18 18 18 Rate Blood Pressure 194/115 144/120 147/130 O2 Sat by Pulse 97 98 98 Oximetry 02/18/24 02/18/24 02/18/24 04:28 06:05 09:45 Temperature Pulse Rate 105 H 113 H 109 H Respiratory 18 18 Rate Blood Pressure 162/122 158/109 160/107 O2 Sat by Pulse 97 99 97 Oximetry 02/18/24 02/18/24 12:00 13:00 Temperature 98.1 F Pulse Rate 80 75 Respiratory 20 20 Rate Blood Pressure 104/74 119/81 O2 Sat by Pulse 97 95 Oximetry Medical Decision Making - Medical Decision Making Was pt. sent in by a medical professional or institution (, PA, [employer], urgent care, hospital, or group home...) When possible be specific @ -No Did you speak to anyone other than the patient for history (EMS, parent, family, police, friend...)? What history was obtained from this source @ -No Did you review nursing and triage notes (agree or disagree)? Why? @ -I reviewed and agree with nursing and triage notes Were old charts reviewed (outside hosp., previous admission, EMS record, old EKG, old radiological studies, urgent care reports/EKG's, group home records)? Report findings @ -No old charts were reviewed Differential Diagnosis (chest pain, altered mental status, abdominal pain women, abdominal pain men, vaginal bleeding, weakness, fever, dyspnea, syncope, headache, dizziness, GI bleed, back pain, seizure, CVA, palpatations, mental health, musculoskeletal)? @ -MDM Differential Abdominal Pain Men: Appendicitis, cholecystitis, diverticulosis, ischemic bowel, pancreatitis, hepatitis, UTI, gastroenteritis, AAA, incarcerated hernia, bowel obstruction, constipation, inflammatory bowel, hepatitis, peptic ulcer disease, splenic infarction, perforated viscus, testicular torsion... This is not meant to be an all-inclusive list EKG interpreted by me (3pts min.). @ -EKG shows sinus tachycardia ventricular rate 105. FL interval 192. QRS 103. QT 339. QTc 400. X-rays interpreted by me (1pt min.). @ -None done CT interpreted by me (1pt min.). @ -CT abdomen and pelvis shows mild intra-abdominal volume of abdominal pelvic ascites CTA chest shows no large central pulmonary embolus. Cardiomegaly. Mediastinal lymphadenopathy. No acute process seen on CT of the brain U/S interpreted by me (1pt. min.). @ -Ultrasound negative for DVT What testing was considered but not performed or refused? (CT, X-rays, U/S, labs)? Why? @ -None What meds were considered but not given or refused? Why? @ -None Did you discuss the management of the patient with other professionals (professionals i.e. DrNadia, PA, [employer], lab, RT, psych nurse, manager social responsibility, cheese cutter, teacher, classifications officer cc/cm, case sealer)? Give summary @ -My attending spoke with Dr. Lin for admission Was smoking cessation discussed for >3mins.? @ -No Was critical care preformed (if so, how long)? @ -No Were there social determinants of health that impacted care today? How? (Homelessness, low income, unemployed, alcoholism, drug addiction, transportation, low edu. Level, literacy, decrease access to med. care, [facility], rehab)? @ -No Was there de-escalation of care discussed even if they declined (Discuss DNR or withdrawal of care, Hospice)? DNR status @ -No What co-morbidities impacted this encounter? (DM, HTN, Smoking, COPD, CAD, Cancer, CVA, ARF, Chemo, Hep., AIDS, mental health diagnosis, sleep apnea, morbid obesity)? @ -None Was patient admitted / discharged? Hospital course, mention meds given and route, prescriptions, significant lab abnormalities, going to OR and other pertinent info. @ -48-year-old male presenting with chief complaint of swelling to the lower extremities and abdomen. Lower extremity swelling has been getting worse, today he noticed abdominal swelling and he is having discomfort in the lower abdomen from this. No chest pain. He has shortness of breath when he sits or lays down. Daily drinker last drink 02/05. Serum alcohol less than 10. Troponin 0.049 and BNP is 2010, patient has no history of CHF. Given that he is having no chest pain low likelihood that elevated troponin is due to ACS and more likely that it is due to heart failure given the patient's presentation. Patient is given hydralazine and Lasix. CT is remarkable for ascites and cardi omegaly. Patient will require admission for evaluation by cardiology. Echo and consult interventional radiology for paracentesis is ordered. Patient is agreeable with this plan. I discussed this case with my attending Dr. Zuniga Undiagnosed new problem with uncertain prognosis? @ -No Drug Therapy requiring intensive monitoring for toxicity (Heparin, Nitro, Insulin, Cardizem)? @ -No Were any procedures done? @ -No Diagnosis/symptom? @ -CHF, hypertensive urgency Acute, or Chronic, or Acute on Chronic? @ -Acute Uncomplicated (without systemic symptoms) or Complicated (systemic symptoms)? @ -Complicated Side effects of treatment? @ -No Exacerbation, Progression, or Severe Exacerbation? @ -No Poses a threat to life or bodily function? How? (Chest pain, USA, VT, pneumonia, PE, COPD, DKA, ARF, appy, cholecystitis, CVA, Diverticulitis, Homicidal, Suicidal, threat to staff... and all critical care pts) @ -yes - Lab Data Result diagrams: 02/17/24 22:43 02/17/24 22:51 Lab Results 02/17/24 02/17/24 02/17/24 Range/Units 22:43 22:47 22:51 WBC 8.2 (3.8-10.6) k/uL RBC 4.94 (4.30-5.90) m/uL Hgb 10.9 L (13.0-17.5) gm/dL Hct 36.2 L (39.0-53.0) % MCV 73.4 L (80.0-100.0) fL MCH 22.1 L (25.0-35.0) pg MCHC 30.1 L (31.0-37.0) g/dL RDW 15.2 (11.5-15.5) % Plt Count 251 (150-450) k/uL MPV 7.4 Neutrophils % 72 % Lymphocytes % 16 % Monocytes % 8 % Eosinophils % 1 % Basophils % 1 % Neutrophils # 5.9 (1.3-7.7) k/uL Lymphocytes # 1.3 (1.0-4.8) k/uL Monocytes # 0.6 (0-1.0) k/uL Eosinophils # 0.1 (0-0.7) k/uL Basophils # 0.1 (0-0.2) k/uL Hypochromasia Marked Microcytosis Slight Sodium 137 (137-145) mmol/L Potassium 4.0 (3.5-5.1) mmol/L Chloride 102 (98-107) mmol/L Carbon Dioxide 23 (22-30) mmol/L Anion Gap 12 mmol/L BUN 8 L (9-20) mg/dL Creatinine 0.82 (0.66-1.25) mg/dL Est GFR (CKD-EPI)AfAm >90 (>60 ml/min/1.73 sqM) Est GFR (CKD-EPI)NonAf >90 (>60 ml/min/1.73 sqM) Glucose 102 H (74-99) mg/dL Plasma Lactic Acid Dusty (0.7-2.0) mmol/L Calcium 9.1 (8.4-10.2) mg/dL Total Bilirubin 1.1 (0.2-1.3) mg/dL AST 49 (17-59) U/L ALT 36 (4-49) U/L Alkaline Phosphatase 94 (38-126) U/L Troponin I (0.000-0.034) ng/mL NT-Pro-B Natriuret Pep 2010 pg/mL Total Protein 7.3 (6.3-8.2) g/dL Albumin 4.0 (3.5-5.0) g/dL Amylase 45 (30-110) U/L Lipase 114 (23-300) U/L Urine Color Light Yellow Urine Appearance Clear (Clear) Urine pH 6.5 (5.0-8.0) Ur Specific [place] 1.005 (1.001-1.035) Urine Protein 2+ H (Negative) Urine Glucose (UA) Negative (Negative) Urine Ketones Negative (Negative) Urine Blood Negative (Negative) Urine Nitrite Negative (Negative) Urine Bilirubin Negative (Negative) Urine Urobilinogen 3.0 (<2.0) mg/dL Ur Leukocyte Esterase Negative (Negative) Urine RBC <1 (0-5) /hpf Urine WBC 1 (0-5) /hpf Urine Mucus Rare H (None) /hpf Serum Alcohol <10 mg/dL 02/17/24 02/17/24 Range/Units 22:51 22:51 WBC (3.8-10.6) k/uL RBC (4.30-5.90) m/uL Hgb (13.0-17.5) gm/dL Hct (39.0-53.0) % MCV (80.0-100.0) fL MCH (25.0-35.0) pg MCHC (31.0-37.0) g/dL RDW (11.5-15.5) % Plt Count (150-450) k/uL MPV Neutrophils % % Lymphocytes % % Monocytes % % Eosinophils % % Basophils % % Neutrophils # (1.3-7.7) k/uL Lymphocytes # (1.0-4.8) k/uL Monocytes # (0-1.0) k/uL Eosinophils # (0-0.7) k/uL Basophils # (0-0.2) k/uL Hypochromasia Microcytosis Sodium (137-145) mmol/L Potassium (3.5-5.1) mmol/L Chloride (98-107) mmol/L Carbon Dioxide (22-30) mmol/L Anion Gap mmol/L BUN (9-20) mg/dL Creatinine (0.66-1.25) mg/dL Est GFR (CKD-EPI)AfAm (>60 ml/min/1.73 sqM) Est GFR (CKD-EPI)NonAf (>60 ml/min/1.73 sqM) Glucose (74-99) mg/dL Plasma Lactic Acid Dusty 1.3 (0.7-2.0) mmol/L Calcium (8.4-10.2) mg/dL Total Bilirubin (0.2-1.3) mg/dL AST (17-59) U/L ALT (4-49) U/L Alkaline Phosphatase (38-126) U/L Troponin I 0.049 H* (0.000-0.034) ng/mL NT-Pro-B Natriuret Pep pg/mL Total Protein (6.3-8.2) g/dL Albumin (3.5-5.0) g/dL Amylase (30-110) U/L Lipase (23-300) U/L Urine Color Urine Appearance (Clear) Urine pH (5.0-8.0) Ur Specific [place] (1.001-1.035) Urine Protein (Negative) Urine Glucose (UA) (Negative) Urine Ketones (Negative) Urine Blood (Negative) Urine Nitrite (Negative) Urine Bilirubin (Negative) Urine Urobilinogen (<2.0) mg/dL Ur Leukocyte Esterase (Negative) Urine RBC (0-5) /hpf Urine WBC (0-5) /hpf Urine Mucus (None) /hpf Serum Alcohol mg/dL Disposition Clinical Impression: Congestive heart failure, Hypertensive urgency Disposition: ADMITTED IP TO THIS HOSP Condition: Fair
[2024-02-18] MEDS: HYDROmorphone 1 MG/ML 1 ML SYRINGE IVP STA (01:15)
--- NOTE | 2024-02-18 03:03 | US ---
EXAM: US Duplex Bilateral Lower Extremities Veins CLINICAL HISTORY: ITS.REASON US Reason: Fluid retention TECHNIQUE: Real-time duplex ultrasound scan of the bilateral lower extremity veins integrating B-mode two-dimensional vascular structure, Doppler spectral analysis, color flow Doppler imaging and compression. COMPARISON: No relevant prior studies available. FINDINGS: Right deep veins: Unremarkable. No DVT in the right common femoral, femoral, proximal deep femoral or popliteal veins. The veins demonstrate normal color flow, are normally compressible, with normal phasic flow and/or augmentation response. Right superficial veins: Unremarkable. No thrombus in the visualized right great saphenous vein. Left deep veins: Unremarkable. No DVT in the left common femoral, femoral, proximal deep femoral or popliteal veins. The veins demonstrate normal color flow, are normally compressible, with normal phasic flow and/or augmentation response. Left superficial veins: Unremarkable. No thrombus in the visualized left great saphenous vein. Soft tissues: No acute findings. No popliteal cyst. Lymph nodes: Mediastinal lymph nodes measuring up to 2.1 cm in short axis diameter in the right paratracheal region. Other findings: Cardiomegaly. Hepatosplenomegaly. IMPRESSION: No acute findings in the bilateral lower extremity veins.
--- NOTE | 2024-02-18 03:05 | CT ---
EXAM: CT Head Without Intravenous Contrast CLINICAL HISTORY: ITS.REASON CT Reason: fluid retention TECHNIQUE: Axial computed tomography images of the head/brain without intravenous contrast. CTDI is 28.4 mGy and DLP is 1225 mGy-cm. This CT exam was performed using one or more of the following dose reduction techniques: automated exposure control, adjustment of the mA and/or kV according to patient size, and/or use of iterative reconstruction technique. COMPARISON: No relevant prior studies available. FINDINGS: Brain: Unremarkable. No hemorrhage. No significant white matter disease. No edema. Ventricles: Unremarkable. No ventriculomegaly. Bones/joints: Unremarkable. No acute fracture. Soft tissues: Unremarkable. Sinuses: Unremarkable as visualized. No acute sinusitis. Mastoid air cells: Unremarkable as visualized. No mastoid effusion. IMPRESSION: Normal head/brain CT.
--- NOTE | 2024-02-18 03:22 | CT ---
EXAM: CT Angiography Chest With Intravenous Contrast CLINICAL HISTORY: ITS.REASON CT Reason: fluid retention TECHNIQUE: Axial computed tomographic angiography images of the chest with intravenous contrast. CTDI is 25.1 mGy and DLP is 1569 mGy-cm. This CT exam was performed using one or more of the following dose reduction techniques: automated exposure control, adjustment of the mA and/or kV according to patient size, and/or use of iterative reconstruction technique. MIP reconstructed images were created and reviewed. COMPARISON: No relevant prior studies available. FINDINGS: Pulmonary arteries: Exam limited secondary to the phase of contrast administration. No large central pulmonary embolus present on this exam. Aorta: No acute findings. No thoracic aortic aneurysm. Lungs: Unremarkable. No mass. No consolidation. Pleural space: Unremarkable. No significant effusion. No pneumothorax. Heart: Cardiomegaly. No significant pericardial effusion. No evidence of RV dysfunction. Mediastinum: Mediastinal lymphadenopathy measuring up to 2.2 cm in short axis. Bones/joints: No acute fracture. No dislocation. Soft tissues: Unremarkable. Lymph nodes: See above. IMPRESSION: Limited exam No large central pulmonary embolus Cardiomegaly Mediastinal lymphadenopathy
[2024-02-18] MEDS: hydrALAZINE HCL 20 MG/ML 1 ML VIAL IVP STA (03:36)
[2024-02-18] MEDS ORDERED: NALOXONE 0.4 MG/ML 1 ML VIAL IV PRN (03:44)
--- NOTE | 2024-02-18 04:11 | CT ---
EXAM: CT Abdomen and Pelvis With Intravenous Contrast CLINICAL HISTORY: ITS.REASON CT Reason: Fluid retention TECHNIQUE: Axial computed tomography images of the abdomen and pelvis with intravenous contrast. CTDI is 33.2 mGy and DLP is 1224 mGy-cm. This CT exam was performed using one or more of the following dose reduction techniques: automated exposure control, adjustment of the mA and/or kV according to patient size, and/or use of iterative reconstruction technique. COMPARISON: No relevant prior studies available. FINDINGS: Lung bases: Unremarkable. No mass. No consolidation. ABDOMEN: Liver: Hepatomegaly. Gallbladder and bile ducts: Unremarkable. No calcified stones. No ductal dilation. Pancreas: Unremarkable. No mass. No ductal dilation. Spleen: Splenomegaly. Adrenals: Unremarkable. No mass. Kidneys and ureters: Unremarkable. No solid mass. No hydronephrosis. Stomach and bowel: Unremarkable. No obstruction. No mucosal thickening. PELVIS: Appendix: No findings to suggest acute appendicitis. Bladder: Unremarkable. No mass. Reproductive: Unremarkable as visualized. ABDOMEN and PELVIS: Intraperitoneal space: Mild intra-abdominal volume of abdominal and pelvic ascites. No free air. Bones/joints: No acute fracture. No dislocation. Soft tissues: Mild diffuse anasarca. Vasculature: Unremarkable. No abdominal aortic aneurysm. Lymph nodes: Unremarkable. No enlarged lymph nodes. IMPRESSION: Mild intra-abdominal volume of abdominal and pelvic ascites.
[2024-02-18] MEDS: FUROSEMIDE 10 MG/ML 4 ML VIAL IV STA (04:26)
[2024-02-18] MEDS: FUROSEMIDE 10 MG/ML 4 ML VIAL IV SCH (09:46)
[2024-02-18] MEDS: DAPAGLIFLOZIN PROPANEDIOL 10 MG TABLET PO SCH (09:46)
[2024-02-18] MEDS: LOSARTAN 50 MG TAB PO SCH (09:46)
[2024-02-18] MEDS: carvediloL 6.25 MG TAB PO SCH (09:46)
--- NOTE | 2024-02-18 11:27 | P.CRDCN ---
History of Present Illness Consult date: 02/18/24 Consult reason: congestive heart failure History of present illness: This is a 48-year-old male patient with no previous cardiac history. He he has a past medical history of hypertension but stopped taking his medication which was lisinopril. We have been asked to evaluate the patient for CHF. Patient states that he is having abdominal swelling going on for few days along with a little shortness of breath mostly because his belly is so big. He is also having abdominal pain and soreness generalized. He states he has checked his blood pressure at home but not as high as we have obtained. He denies having any palpitations, no chest pain or chest tightness. He denies history of smoking. He states he stopped drinking alcohol on . Patient presented to the hospital with a blood pressure of 194/115. He is status post hydralazine 5 mg IV x 1 and Lasix 40 mg IV x 1. Blood pressure is now 158/109, heart rate 113, pulse ox 99% on room air. Patient states he has urinated a significant amount. -EKG: Sinus tachycardia no acute ST changes. -Chest x-ray: -CTA of the chest reveals no large central pulmonary embolus. Cardiomegaly. Mediastinal lymphadenopathy. -CT head: Normal. -CT of the abdomen pelvis with contrast revealed -Mild intra-abdominal volume pulmonary and pelvic ascites. -Ultrasound duplex bilateral lower extremities negative for DVT -Laboratory studies: WBC 8.2, hemoglobin 10.9. Troponin 0.049, 0.039 and 0.039. proBNP 2010. Serum alcohol less than 10. Potassium 4.0 -Home cardiac medications: None. Patient was previously on lisinopril. Review Of Systems: At the time of my exam: CONSTITUTIONAL: Denies fever or chills. HEENT: Denies blurred vision, vision changes, or eye pain. Denies hemoptysis CARDIOVASCULAR: Denies chest pain. Denies orthopnea. Denies PND. Denies palpitations RESPIRATORY: Mild shortness of breath. GASTROINTESTINAL: Reports abdominal swelling, reports abdominal pain. Denies nausea or vomiting. HEMATOLOGIC: Denies bleeding disorders. GENITOURINARY: Denies any blood in urine. SKIN: Denies puritis. Denies rash. Physical examination: Gen: This is a 48-year-old male in no acute distress VS: reviewed HEENT: Head is atraumatic, normocephalic. Pupils equal, round. Sclerae is anicteric. NECK: Supple. No JVD. LUNGS: Clear to auscultation. No wheezes or rhonchi. No intercostal retractions. HEART: Regular rate and rhythm. No murmur. ABDOMEN: Abdominal distention with ascites. No tenderness. EXTREMITIES: No pedal edema. No calf tenderness. NEUROLOGICAL: Patient is awake, alert and oriented x3. Assessment: Acute CHF, unknown EF Elevated troponin secondary to CHF and uncontrolled hypertension Uncontrolled hypertension Noncompliance with medication Ascites of unclear etiology Plan: Start patient on Coreg 6.25 mg twice daily, Farxiga 10 mg daily, losartan 100 mg daily Start patient on IV Lasix 40 mg twice daily Monitor SALLY, daily weights, electrolytes and renal function Obtain 2-D echocardiogram and Doppler study to assess cardiac structure and func tion Further recommendations to follow based upon clinical course Thank you kindly for this consultation. Nurse practitioner note has been reviewed, I agree with documented findings and plan of care. Patient was seen and examined. Past Medical History Past Medical History: Hypertension History of Any Multi-Drug Resistant Organisms: None Reported Past Surgical History: No Surgical Hx Reported Past Anesthesia/Blood Transfusion Reactions: No Reported Reaction Smoking Status: Vaper Past Alcohol Use History: Heavy, Occasional Past Drug Use History: None Reported - Past Family History family Additional Family Medical History / Comment(s): no cad Medications and Allergies Home Medications Medication Instructions Recorded Confirmed Type No Known Home Medications 02/18/24 02/18/24 History Allergies Allergy/AdvReac Type Severity Reaction Status Date / Time No Known Allergies Allergy Verified 02/18/24 09:38 Physical Exam Vitals: Vital Signs Temp Pulse Resp BP Pulse Ox 02/18/24 06:05 113 H 18 158/109 99 02/18/24 04:28 105 H 18 162/122 97 02/18/24 02:00 107 H 18 147/130 98 02/18/24 00:24 109 H 18 144/120 98 02/17/24 22:30 98.2 F 120 H 18 194/115 97 Intake and Output 02/17/24 02/18/24 02/18/24 22:59 06:59 14:59 Other: Weight 104.326 kg Results 02/17/24 22:43 02/17/24 22:51 Cardiac Enzymes 02/17/24 02/17/24 02/18/24 Range/Units 22:51 22:51 04:10 AST 49 (17-59) U/L Troponin I 0.049 H* 0.039 H* (0.000-0.034) ng/mL CBC 02/17/24 Range/Units 22:43 WBC 8.2 (3.8-10.6) k/uL RBC 4.94 (4.30-5.90) m/uL Hgb 10.9 L (13.0-17.5) gm/dL Hct 36.2 L (39.0-53.0) % Plt Count 251 (150-450) k/uL Comprehensive Metabolic Panel 02/17/24 Range/Units 22:51 Sodium 137 (137-145) mmol/L Potassium 4.0 (3.5-5.1) mmol/L Chloride 102 (98-107) mmol/L Carbon Dioxide 23 (22-30) mmol/L BUN 8 L (9-20) mg/dL Creatinine 0.82 (0.66-1.25) mg/dL Glucose 102 H (74-99) mg/dL Calcium 9.1 (8.4-10.2) mg/dL AST 49 (17-59) U/L ALT 36 (4-49) U/L Alkaline Phosphatase 94 (38-126) U/L Total Protein 7.3 (6.3-8.2) g/dL Albumin 4.0 (3.5-5.0) g/dL Current Medications Generic Name Dose Route Start Last Admin Trade Name Freq PRN Reason Stop Dose Admin Naloxone HCl 0.2 mg 02/18/24 03:44 Naloxone 0.4 Mg/Ml 1 Ml Vial IV Q2M PRN Opioid Reversal Intake and Output 02/17/24 02/18/24 02/18/24 22:59 06:59 14:59 Other: Weight 104.326 kg 02/17/24 22:43 02/17/24 22:51
[2024-02-18] MEDS: ENOXAPARIN 40 MG/0.4 ML SYRINGE SQ SCH (15:01)
--- NOTE | 2024-02-18 16:00 | P.HPIM ---
History of Present Illness H&P Date: 02/18/24 Chief Complaint: Distended abdomen edema Pleasant 48-year-old patient follows with Dr. IBRAHIM. Only medical history is that of hypertension. Patient is accompanied by his girlfriend Melinda at the bedside. Patient for 6 to 8 weeks and noticed abdominal distention gradually getting worse. Bloating. To the point of getting discomfort. Also for last 10 days noticing edema in the lower extremity. Some shortness of breath. No fever no chills. No chest pain some orthopnea. Review of systems: GEN.: Tired EYES: None HEENT: None NECK: None RESPIRATORY: No chest pain CARDIOVASCULAR: None GASTROINTESTINAL: As above GENITOURINARY: None MUSCULOSKELETAL: None LYMPHATICS: None HEMATOLOGICAL: None PSYCHIATRY: None NEUROLOGICAL: None Social history: Lives with girlfrienblu Lawrence. Smoked less than half a pack a day for 21 years stopped 6 years ago. Does vaping. About 4 days a week drinks 4 to 5 cans of 12% beer-for last 2 years. Physical examination: VITAL SIGNS: 98.2, 109, 18, 144 x 120, 98% room air GENERAL: BMI 29.5, reclining bed a bit tired appearing. EYES: Pupils equal. Conjunctiva alverto l. HEENT: External appearance of nose and ears normal, oral cavity grossly normal. NECK: JVD possibly raised; masses not palpable. HEART: First and second heart sounds are normal, significant edema. LUNGS: Respiratory rate increased, diminished breath sounds. ABDOMEN: Soft, distended. Mild nontender, liver spleen not palpable, no masses palpable. PSYCH: Alert and oriented x3; mood and affect alverto l. MUSCULOSKELETAL:No Clubbing/cyanosis;muscles-grossly intact NEUROLOGICAL: Cranial nerves grossly intact; no facial asymmetry, power and sensation grossly intact. LYMPHATICS: No lymph nodes palpable in the axilla and neck INVESTIGATIONS, reviewed in the clinical context: February 16: Sodium 137 potassium 4 BUN 8 creatinine 0.82 Troponin I [id number] proBNP 2009 amylase 45 lipase normal for UA protein 2+ Serum alcohol less than 10 white count 8.2 hemoglobin 10.9 platelets 251 EKG tracing personally reviewed by me-normal sinus rhythm. Ultrasound Doppler lower extremity: No DVT. Chest CTA: Cardiomegaly. Some mediastinal lymphadenopathy Abdomen pelvis with IV contrast CT scan: Hepatomegaly. Splenomegaly. Mild ascites Assessment and plan: -Patient's abdominal distention getting worse for 6 to 8 weeks. No edema. Some shortness of breath. Abdomen is showing some ascites and splenomegaly. This could all be right-sided failure cardiac. Also or could be hepatic cause/cirrhosis. Ultrasound abdomen 2D echo ordered. IV Lasix. Fluid restriction. -Positive troponin. No ACS picture. Cardio consulted -Microcytic anemia Check iron studies. B12 folate Care was discussed with the patient at the bedside. Given the complexity and severity of patient's condition expect the patient to be in the hospital at least for 2 overnights Past Medical History Past Medical History: Hypertension History of Any Multi-Drug Resistant Organisms: None Reported Past Surgical History: No Surgical Hx Reported Past Anesthesia/Blood Transfusion Reactions: No Reported Reaction Smoking Status: Vaper Past Alcohol Use History: Heavy, Occasional Past Drug Use History: None Reported - Past Family History family Additional Family Medical History / Comment(s): no cad Medications and Allergies Home Medications Medication Instructions Recorded Confirmed Type No Known Home Medications 02/18/24 02/18/24 History Allergies Allergy/AdvReac Type Severity Reaction Status Date / Time No Known Allergies Allergy Verified 02/18/24 09:38 Physical Exam Vitals: Vital Signs Temp Pulse Resp BP Pulse Ox 02/18/24 06:05 113 H 18 158/109 99 02/18/24 04:28 105 H 18 162/122 97 02/18/24 02:00 107 H 18 147/130 98 02/18/24 00:24 109 H 18 144/120 98 02/17/24 22:30 98.2 F 120 H 18 194/115 97 Intake and Output 02/17/24 02/18/24 02/18/24 22:59 06:59 14:59 Output Total 1200 Balance -1200 Output: Urine 1200 Other: # Voids 3 Weight 104.326 kg Results CBC & Chem 7: 02/17/24 22:43 02/17/24 22:51 Labs: Abnormal Lab Results - Last 24 Hours (Table) 02/17/24 02/17/24 02/17/24 Range/Units 22:43 22:47 22:51 Hgb 10.9 L (13.0-17.5) gm/dL Hct 36.2 L (39.0-53.0) % MCV 73.4 L (80.0-100.0) fL MCH 22.1 L (25.0-35.0) pg MCHC 30.1 L (31.0-37.0) g/dL BUN 8 L (9-20) mg/dL Glucose 102 H (74-99) mg/dL Troponin I (0.000-0.034) ng/mL Urine Protein 2+ H (Negative) Urine Mucus Rare H (None) /hpf 02/17/24 02/18/24 02/18/24 Range/Units 22:51 04:10 08:21 Hgb (13.0-17.5) gm/dL Hct (39.0-53.0) % MCV (80.0-100.0) fL MCH (25.0-35.0) pg MCHC (31.0-37.0) g/dL BUN (9-20) mg/dL Glucose (74-99) mg/dL Troponin I 0.049 H* 0.039 H* 0.039 H* (0.000-0.034) ng/mL Urine Protein (Negative) Urine Mucus (None) /hpf
--- NOTE | 2024-02-18 17:47 | XR ---
EXAMINATION TYPE: XR chest 2V DATE OF EXAM: 02/18/2024 5:08 PM COMPARISON: None CLINICAL INDICATION: Male, 48 years old with history of Short of breath; TECHNIQUE: XR chest 2V Frontal and lateral views of the chest. FINDINGS: Lungs/Pleura: There is no evidence of pleural effusion, focal consolidation, or pneumothorax. Pulmonary vascularity: Pulmonary vascular congestion. Heart/mediastinum: Cardiomediastinal silhouette is enlarged and stable. Musculoskeletal: No acute osseous pathology. IMPRESSION: Cardiomegaly with possible pulmonary vascular congestion correlate clinically. [facility], , 02/18/2024 5:45 PM
[2024-02-18 23:21] LABS: % Iron Saturation 4.75 (15.00-50.00); Ferritin 15.8 ng/mL (22.0-322.0)
--- NOTE | 2024-02-19 08:07 | US ---
EXAMINATION TYPE: US abdomen limited DATE OF EXAM: 02/19/2024 COMPARISON: CT CLINICAL INDICATION: Male, 48 years old with history of poss cirrhosis/ascites; ascites. Limitations due to bowel gas. TECHNIQUE: Grayscale and color Doppler imaging of the right upper quadrant was performed. FINDINGS: EXAM MEASUREMENTS: Liver Length: 18.5 cm Gallbladder Wall: .4 cm CBD: .4cm Right Kidney: 10.2 x 5.4 x 5.1 cm TANK PUMPER PANELBOARD NOTES: Pancreas: Obscured by bowel gas Liver: Increased attenuation , no evidence for nodular contour. No suspicious masses. Gallbladder: No stones seen Evidence for sonographic Chang's sign: No CBD: wnl Right Kidney: No hydronephrosis or masses seen IMPRESSION: No evidence for acute process. Smooth contour to liver with increased echotexture slightly. [facility], , 02/19/2024 8:05 AM
--- NOTE | 2024-02-19 14:30 | P.PN ---
Progress Note - Text Progress Note Date: 02/19/24 Chief Complaint: Distended abdomen edema Pleasant 48-year-old patient follows with Dr. IBRAHIM. Only medical history is that of hypertension. Patient is accompanied by his girlfriend Melinda at the bedside. Patient for 6 to 8 weeks and noticed abdominal distention gradually getting worse. Bloating. To the point of getting discomfort. Also for last 10 days noticing edema in the lower extremity. Some shortness of breath. No fever no chills. No chest pain some orthopnea. February 18: Patient seen earlier today. Abdominal ultrasound does not state much about cirrhosis. Not much fluid reported. 2D echocardiogram pending. This all could be from cardiac cause. At the right-sided failure/pericardial effusion. Patient making good urine. Up in a chair. Girlfriend at the bedside. Remains on IV Lasix Active Medications Carvedilol (Carvedilol 6.25 Mg Tab) 6.25 mg PO BID-W/[facility]ALS [facility] Last Admin: 02/19/24 08:36 Dose: 6.25 mg Dapagliflozin (Dapagliflozin Propanediol 10 Mg Tablet) 10 mg PO DAILY [facility] Last Admin: 02/19/24 08:36 Dose: 10 mg Enoxaparin Sodium (Enoxaparin 40 Mg/0.4 Ml Syringe) 40 mg SQ DAILY [facility] Last Admin: 02/19/24 09:09 Dose: 40 mg Furosemide (Furosemide 10 Mg/Ml 4 Ml Vial) 40 mg IV BID [facility] Last Admin: 02/19/24 08:36 Dose: 40 mg Hydralazine HCl (Hydralazine Hcl 25 Mg Tab) 25 mg PO TID [facility] Losartan Potassium (Losartan 50 Mg Tab) 100 mg PO DAILY [facility] Last Admin: 02/19/24 08:36 Dose: 100 mg Naloxone HCl (Naloxone 0.4 Mg/Ml 1 Ml Vial) 0.2 mg IV Q2M PRN PRN Reason: Opioid Reversal Social history: Lives with girlfrienblu Lawrence. Smoked less than half a pack a day for 21 years stopped 6 years ago. Does vaping. About 4 days a week drinks 4 to 5 cans of 12% beer-for last 2 years. Physical examination: VITAL SIGNS: 98, 90, 16, 117 x 75, 96% room air GENERAL: BMI 29.5, up in a chair, looking a bit better EYES: Pupils equal. Conjunctiva alverto l. HEENT: External appearance of nose and ears normal, oral cavity grossly normal. NECK: JVD possibly raised; masses not palpable. HEART: First and second heart sounds are normal, 80 present LUNGS: Respiratory rate i normal, diminished breath sounds. ABDOMEN: Soft, less distended. Nontender, liver spleen not palpable, no masses palpable. PSYCH: Alert and oriented x3; mood and affect alverto l. MUSCULOSKELETAL:No Clubbing/cyanosis;muscles-grossly intact Delete that INVESTIGATIONS, reviewed in the clinical context: Iron 24. TIBC 505. Percent saturation 4.75 transferrin 361 ferritin 15.8. B12 441 folate 18.5 Chest x-ray film personally reviewed by me-cardiomegaly Abdominal ultrasound: Liver shows increased attenuation. No evidence of nodular contour. No suspicious masses. February 16: Sodium 137 potassium 4 BUN 8 creatinine 0.82 Troponin I [id number] proBNP 2009 amylase 45 lipase normal for UA protein 2+ Serum alcohol less than 10 white count 8.2 hemoglobin 10.9 platelets 251 EKG tracing personally reviewed by me-normal sinus rhythm. Ultrasound Doppler lower extremity: No DVT. Chest CTA: Cardiomegaly. Some mediastinal lymphadenopathy Abdomen pelvis with IV contrast CT scan: Hepatomegaly. Splenomegaly. Mild ascites Assessment and plan: -Patient's abdominal distention getting worse for 6 to 8 weeks. No edema. Some shortness of breath. Abdomen is showing some ascites and splenomegaly. Differential pending 2D echo shows could be pericardial effusion/right-sided failure. Pending 2D echo. IV Lasix. Fluid restriction. -Positive troponin. No ACS picture. Cardio following -Microcytic anemia-iron deficiency anemia IV iron ordered GI services not available this week. Outpatient colonoscopy. -Obesity BMI 32.9 Discussed with patient girlfriend. IV iron. Await 2D echo results. Past Medical History Past Medical History: Hypertension History of Any Multi-Drug Resistant Organisms: None Reported Past Surgical History: No Surgical Hx Reported Past Anesthesia/Blood Transfusion Reactions: No Reported Reaction Smoking Status: Vaper Past Alcohol Use History: Heavy, Occasional Past Drug Use History: None Reported
--- NOTE | 2024-02-19 14:58 | P.PN ---
Subjective Progress Note Date: 02/19/24 Consult reason: congestive heart failure History of present illness: This is a 48-year-old male patient with no previous cardiac history. He he has a past medical history of hypertension but stopped taking his medication which was lisinopril. We have been asked to evaluate the patient for CHF. Patient states that he is having abdominal swelling going on for few days along with a little shortness of breath mostly because his belly is so big. He is also having abdominal pain and soreness generalized. He states he has checked his blood pressure at home but not as high as we have obtained. He denies having any palpitations, no chest pain or chest tightness. He denies history of smoking. He states he stopped drinking alcohol on . Patient presented to the hospital with a blood pressure of 194/115. He is status post hydralazine 5 mg IV x 1 and Lasix 40 mg IV x 1. Blood pressure is now 158/109, heart rate 113, pulse ox 99% on room air. Patient states he has urinated a significant amount. -EKG: Sinus tachycardia no acute ST changes. -CTA of the chest reveals no large central pulmonary embolus. Cardiomegaly. Mediastinal lymphadenopathy. -CT head: Normal. -CT of the abdomen pelvis with contrast revealed mild intra-abdominal and pelvic ascites. -Ultrasound duplex bilateral lower extremities negative for DVT -Laboratory studies: WBC 8.2, hemoglobin 10.9. Troponin 0.049, 0.039 and 0.039. proBNP 2009. Serum alcohol less than 10. Potassium 4.0 -Home cardiac medications: None. Patient was previously on lisinopril. 02/19/2024 Patient seen and examined on the cardiac stepdown unit. Patient has been maintained on IV Lasix 40 mg twice daily. He continues to urinate a significant amount. He has a negative fluid balance. Blood pressure 158/95, heart rate 98, pulse ox 90% on room air. Echocardiogram is pending. Ferrlecit has been ordered by attending. Abdominal ultrasound revealed no acute process Physical examination: Gen: This is a 48-year-old male in no acute distress VS: reviewed HEENT: Head is atraumatic, normocephalic. Pupils equal, round. Sclerae is anicteric. NECK: Supple. No JVD. LUNGS: Clear to auscultation. No wheezes or rhonchi. No intercostal retractions. HEART: Regular rate and rhythm. No murmur. ABDOMEN: Abdominal distention. No tenderness. EXTREMITIES: Bilateral pedal edema. No calf tenderness. NEUROLOGICAL: Patient is awake, alert and oriented x3. Assessment: Acute CHF, unknown EF Elevated troponin, flat, secondary to CHF and uncontrolled hypertension Uncontrolled hypertension Iron deficiency anemia Noncompliance with medication Ascites- no significant ascites on imaging Plan: Continue patient on Coreg which will be increased to 12.5 mg twice daily, Farxiga 10 mg daily, losartan 100 mg daily Continue patient on IV Lasix 40 mg twice daily Add hydralazine 25 mg 3 times daily and hold for systolic blood pressure less than 100 Monitor SALLY, daily weights, electrolytes and renal function Obtain 2-D echocardiogram and Doppler study to assess cardiac structure and function Further recommendations to follow based upon clinical course Nurse practitioner note has been reviewed, I agree with documented findings and plan of care. Patient was seen and examined. Objective - Vital Signs Vital signs: Vital Signs Temp 98.0 F 02/19/24 08:27 Pulse 98 02/19/24 08:27 Resp 20 02/19/24 08:27 BP 158/95 02/19/24 08:27 Pulse Ox 98 02/19/24 08:27 FiO2 Intake & Output 02/18/24 02/19/24 02/19/24 18:59 06:59 18:59 Intake Total 750 240 Output Total 1200 850 Balance -1200 -100 240 Weight 116.4 kg Intake: Oral 750 240 Output: Urine 1200 850 Other: Voiding Method Urinal # Voids 3 0 - Labs CBC & Chem 7: 02/17/24 22:43 02/17/24 22:51 Labs: Abnormal Lab Results - Last 24 Hours (Table) 02/18/24 Range/Units 08:21 Iron 24 L (65-175) UG/DL TIBC 505 H (228-460) UG/DL % Saturation 4.75 L (15.00-50.00) Transferrin 361.0 H (204.0-354.0) mg/dL Ferritin 15.8 L (22.0-322.0) ng/mL
[2024-02-19] MEDS: hydrALAZINE HCL 25 MG TAB PO SCH (15:16)
[2024-02-19] MEDS: SODIUM FERRIC GLUCONAT-SUCROSE 125 MG in SODIUM CHLORIDE 0.9% 100 ML IVPB SCH (15:17)
[2024-02-19] MEDS: carvediloL 12.5 MG TAB PO SCH (16:56)
--- NOTE | 2024-02-20 07:04 | CA ---
Transthoracic Echo Report Name: Pierre Shelby Age: 48 Gender: M : 1975 Exam Date: 02/19/2024 13:53 Exam Location: [facility] Ht (in): 74 Wt (lb): 230 Ordering Physician: Kandis Antonio Attending/Referring Phys: Manager Training Maria Del Carmen Moody RDCS Procedure CPT: Indications: chf Cardiac Hx: Technical Quality: Fair Contrast 1: Definity Total Dose (mL): 2 Contrast 2: Total Dose (mL): MEASUREMENTS (Male / Female) Normal Values 2D ECHO LV Diastolic Diameter PLAX 5.3 cm 4.2 - 5.9 / 3.9 - 5.3 cm LV Systolic Diameter PLAX 4.0 cm IVS Diastolic Thickness 1.5 cm 0.6 - 1.0 / 0.6 - 0.9 cm LVPW Diastolic Thickness 1.5 cm 0.6 - 1.0 / 0.6 - 0.9 cm LV Relative Wall Thickness 0.6 RV Internal Dim ED PLAX 2.9 cm LA Systolic Diameter LX 4.9 cm 3.0 - 4.0 / 2.7 - 3.8 cm M-MODE Aortic Root Diameter MM 3.5 cm LA Systolic Diameter MM 4.3 cm LA Ao Ratio MM 1.2 AV Cusp Separation MM 1.7 cm DOPPLER AV Peak Velocity 146.9 cm/s AV Peak Gradient 8.6 mmHg Mitral E Point Velocity 117.7 cm/s Mitral A Point Velocity 3.7 cm/s Mitral E to A Ratio 32.2 MV Deceleration Time 268.5 ms MV E' Velocity 4.9 cm/s Mitral E to MV E' Ratio 23.9 TR Peak Velocity 243.8 cm/s TR Peak Gradient 23.8 mmHg FINDINGS Left Ventricle Left ventricular ejection fraction is estimated at 30-35 %. Moderately increased wall thickness. Left ventricular cavity size normal. severely reduced global left ventricular systolic function. Right Ventricle Mild right ventricular dilatation. Right ventricular systolic pressure within normal limits. Right Atrium Moderate right atrial dilatation. Left Atrium Moderately increased left atrial diameter. Mitral Valve Structurally normal mitral valve. Mild mitral regurgitation. No mitral stenosis. Aortic Valve Trileaflet aortic valve. No aortic valve stenosis or regurgitation. Tricuspid Valve Structurally normal tricuspid valve. Mild tricuspid regurgitation. No tricuspid stenosis. Pulmonic Valve Pulmonic valve not well visualized. Trace pulmonic regurgitation. No pulmonic stenosis. Pericardium No pericardial or pleural effusion. Aorta Normal size aortic root and proximal ascending aorta. CONCLUSIONS Definity ECHO contrast used for improved visualization of the endocardial borders (inadequate visualization of two or more contiguous segments). Severe global hypokinesis of the left ventricle Mild mitral and tricuspid regurgitation Previewed by: Dr. Bianca Zelaya MD (Electronically Signed) Final Date: 20 February 2024 07:04
[2024-02-20 08:41] LABS: African American GFR (CKD) >90 (>60 ml/min/1.73 sqM); Anion Gap 11 mmol/L; Blood Urea Nitrogen 12 mg/dL (9-20); Carbon Dioxide 27 mmol/L (22-30); Chloride 101 mmol/L (98-107); Glucose 98 mg/dL (74-99); Non-African American GFR(CKD) >90 (>60 ml/min/1.73 sqM); Potassium 3.6 mmol/L (3.5-5.1); Sodium 139 mmol/L (137-145)
[2024-02-20] MEDS: LOSARTAN 50 MG TAB PO SCH (10:29)
--- NOTE | 2024-02-20 11:37 | P.PN ---
Subjective Progress Note Date: 02/20/24 Consult reason: congestive heart failure History of present illness: This is a 48-year-old male patient with no previous cardiac history. He he has a past medical history of hypertension but stopped taking his medication which was lisinopril. We have been asked to evaluate the patient for CHF. Patient states that he is having abdominal swelling going on for few days along with a little shortness of breath mostly because his belly is so big. He is also having abdominal pain and soreness generalized. He states he has checked his blood pressure at home but not as high as we have obtained. He denies having any palpitations, no chest pain or chest tightness. He denies history of smoking. He states he stopped drinking alcohol on . Patient presented to the hospital with a blood pressure of 194/115. He is status post hydralazine 5 mg IV x 1 and Lasix 40 mg IV x 1. Blood pressure is now 158/109, heart rate 113, pulse ox 99% on room air. Patient states he has urinated a significant amount. -EKG: Sinus tachycardia no acute ST changes. -CTA of the chest reveals no large central pulmonary embolus. Cardiomegaly. Mediastinal lymphadenopathy. -CT head: Normal. -CT of the abdomen pelvis with contrast revealed mild intra-abdominal and pelvic ascites. -Ultrasound duplex bilateral lower extremities negative for DVT -Laboratory studies: WBC 8.2, hemoglobin 10.9. Troponin 0.049, 0.039 and 0.039. proBNP 2009. Serum alcohol less than 10. Potassium 4.0 -Home cardiac medications: None. Patient was previously on lisinopril. 02/19/2024 Patient seen and examined on the cardiac stepdown unit. Patient has been maintained on IV Lasix 40 mg twice daily. He continues to urinate a significant amount. He has a negative fluid balance. Blood pressure 158/95, heart rate 98, pulse ox 90% on room air. Echocardiogram is pending. Ferrlecit has been ordered by attending. Abdominal ultrasound revealed no acute process 02/20/2024 Patient seen and examined. Blood pressure 101/66, heart rate 89. Pulse ox 95% on room air. Echocardiogram reveals EF of 30 to 35% with severe global hypokinesia of the LV. Mild MR, mild TR. Patient updated regarding echocardiogram results. Blood pressure is on the low side for which occasions will be adjusted. Stool for occult blood came back negative. Patient is maintained on IV Lasix 40 mg twice daily and has been diuresing well. Blood work reveals sodium 139, potassium 3.6, BUN 12 and creatinine 0.95. Physical examination: Gen: This is a 48-year-old male in no acute distress VS: reviewed HEENT: Head is atraumatic, normocephalic. Pupils equal, round. Sclerae is anicteric. NECK: Supple. No JVD. LUNGS: Clear to auscultation. No wheezes or rhonchi. No intercostal retractions . HEART: Regular rate and rhythm. No murmur. ABDOMEN: Abdominal distention. No tenderness. EXTREMITIES: Bilateral 2+ pedal edema. No calf tenderness. NEUROLOGICAL: Patient is awake, alert and oriented x3. Assessment: Acute CHF with reduced EF Elevated troponin, flat, secondary to CHF and uncontrolled hypertension Uncontrolled hypertension Iron deficiency anemia Noncompliance with medication Ascites- no significant ascites on imaging Plan: Continue patient on Coreg 12.5 mg twice daily, Farxiga 10 mg daily Decrease losartan to 50 mg daily Discontinue hydralazine Continue patient on IV Lasix 40 mg twice daily Monitor SALLY, daily weights, electrolytes and renal function Further recommendations to follow based upon clinical course Nurse practitioner note has been reviewed, I agree with documented findings and plan of care. Patient was seen and examined. Objective - Vital Signs Vital signs: Vital Signs Temp 97.9 F 02/19/24 20:00 Pulse 89 02/20/24 08:00 Resp 16 02/20/24 08:00 BP 101/66 02/20/24 08:00 Pulse Ox 95 02/20/24 08:00 FiO2 Intake & Output 02/19/24 02/20/24 02/20/24 18:59 06:59 18:59 Intake Total 1497 480 Output Total 2350 2070 Balance -853 -1590 Weight 116.4 kg 114.6 kg Intake: Oral 1497 480 Output: Urine 2350 2070 Other: Voiding Method Urinal Urinal # Voids 1 # Bowel Movements 1 - Labs CBC & Chem 7: 02/17/24 22:43 02/20/24 07:07
--- NOTE | 2024-02-20 16:57 | P.PN ---
Progress Note - Text Progress Note Date: 02/20/24 Chief Complaint: Distended abdomen edema Pleasant 48-year-old patient follows with Dr. IBRAHIM. Only medical history is that of hypertension. Patient is accompanied by his girlfriend Melinda at the bedside. Patient for 6 to 8 weeks and noticed abdominal distention gradually getting worse. Bloating. To the point of getting discomfort. Also for last 10 days noticing edema in the lower extremity. Some shortness of breath. No fever no chills. No chest pain some orthopnea. February 18: Patient seen earlier today. Abdominal ultrasound does not state much about cirrhosis. Not much fluid reported. 2D echocardiogram pending. This all could be from cardiac cause. At the right-sided failure/pericardial effusion. Patient making good urine. Up in a chair. Girlfriend at the bedside. Remains on IV Lasix February 19: Breathing better. Edema coming down. Though still present. Remains on IV Lasix every 12. 2D echo showing EF of 30%. Could be related to alcohol or viral event. Patient is receiving IV iron for iron deficiency anemia. Hematology consulted. Care was discussed at length with the patient. Farxiga was added by cardiology. Today Cozaar was added. Active Medications Carvedilol (Carvedilol 12.5 Mg Tab) 12.5 mg PO BID-W/MEALS [facility] Last Admin: 02/20/24 06:25 Dose: 12.5 mg Dapagliflozin (Dapagliflozin Propanediol 10 Mg Tablet) 10 mg PO DAILY [facility] Last Admin: 02/20/24 08:03 Dose: 10 mg Enoxaparin Sodium (Enoxaparin 40 Mg/0.4 Ml Syringe) 40 mg SQ DAILY [facility] Last Admin: 02/20/24 08:03 Dose: 40 mg Furosemide (Furosemide 10 Mg/Ml 4 Ml Vial) 40 mg IV BID [facility] Last Admin: 02/20/24 08:03 Dose: 40 mg Ferric Sodium Gluconate 125 mg (/ Sodium Chloride) 110 mls @ 100 mls/hr IVPB DAILY [facility] Stop: 02/21/24 10:05 Last Admin: 02/20/24 09:20 Dose: 100 mls/hr Losartan Potassium (Losartan 50 Mg Tab) 50 mg PO DAILY [facility] Last Admin: 02/20/24 10:29 Dose: 50 mg Naloxone HCl (Naloxone 0.4 Mg/Ml 1 Ml Vial) 0.2 mg IV Q2M PRN PRN Reason: Opioid Reversal Social history: Lives with girlfriend Melinda. Smoked less than half a pack a day for 21 years stopped 6 years ago. Does vaping. About 4 days a week drinks 4 to 5 cans of 12% beer-for last 2 years. Physical examination: VITAL SIGNS: 91, 16, 117/72, 95% room air GENERAL: BMI 29.5, up in a chair, looking better EYES: Pupils equal. Conjunctiva alverto l. HEENT: External appearance of nose and ears normal, oral cavity grossly normal. NECK: JVD possibly raised; masses not palpable. HEART: First and second heart sounds are normal, decreasing edema LUNGS: Respiratory rate i normal, diminished breath sounds. ABDOMEN: Soft, less distended. Nontender, liver spleen not palpable, no masses palpable. PSYCH: Alert and oriented x3; mood and affect alverto l. INVESTIGATIONS, reviewed in the clinical context: 2D echocardiogram: EF 30 to 35%. February 19: Potassium 3.6 creatinine 0.95. Stool occult blood negative Iron 24. TIBC 505. Percent saturation 4.75 transferrin 361 ferritin 15.8. B12 441 folate 18.5 Chest x-ray film personally reviewed by me-cardiomegaly Abdominal ultrasound: Liver shows increased attenuation. No evidence of nodular contour. No suspicious masses. February 16: Sodium 137 potassium 4 BUN 8 creatinine 0.82 Troponin I [id number] proBNP 2009 amylase 45 lipase normal for UA protein 2+ Serum alcohol less than 10 white count 8.2 hemoglobin 10.9 platelets 251 EKG tracing personally reviewed by me-normal sinus rhythm. Ultrasound Doppler lower extremity: No DVT. Chest CTA: Cardiomegaly. Some mediastinal lymphadenopathy Abdomen pelvis with IV contrast CT scan: Hepatomegaly. Splenomegaly. Mild ascites Assessment and plan: -Acute congestive heart failure exacerbation from systolic dysfunction EF 30 to 35%. 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 IV Lasix. Farxiga. Cozaar. Fluid restriction -Positive troponin. No ACS picture. Cardio following -Microcytic anemia-iron deficiency anemia IV iron ordered GI services not available this week. Outpatient colonoscopy. Hematology consulted -Obesity BMI 32.9 Discussed with patient. Getting IV iron. 2D echo results discussed. Consult hematology. Will see GI outpatient. Past Medical History Past Medical History: Hypertension History of Any Multi-Drug Resistant Organisms: None Reported Past Surgical History: No Surgical Hx Reported Past Anesthesia/Blood Transfusion Reactions: No Reported Reaction Smoking Status: Vaper Past Alcohol Use History: Heavy, Occasional Past Drug Use History: None Reported
[2024-02-21 06:57] LABS: African American GFR (CKD) >90 (>60 ml/min/1.73 sqM); Anion Gap 10 mmol/L; Blood Urea Nitrogen 15 mg/dL (9-20); Calcium 8.9 mg/dL (8.4-10.2); Carbon Dioxide 28 mmol/L (22-30); Chloride 98 mmol/L (98-107); Glucose 157 mg/dL (74-99); Non-African American GFR(CKD) 89 (>60 ml/min/1.73 sqM); Potassium 3.6 mmol/L (3.5-5.1); Sodium 136 mmol/L (137-145)
[2024-02-21 10:23] VITALS: RESP 18
[2024-02-21 14:12] VITALS: BP 115/80; PULSE 90; TEMP 97.7
--- NOTE | 2024-02-21 14:44 | P.PN ---
Subjective Progress Note Date: 02/21/24 Consult reason: congestive heart failure History of present illness: This is a 48-year-old male patient with no previous cardiac history. He he has a past medical history of hypertension but stopped taking his medication which was lisinopril. We have been asked to evaluate the patient for CHF. Patient states that he is having abdominal swelling going on for few days along with a little shortness of breath mostly because his belly is so big. He is also having abdominal pain and soreness generalized. He states he has checked his blood pressure at home but not as high as we have obtained. He denies having any palpitations, no chest pain or chest tightness. He denies history of smoking. He states he stopped drinking alcohol on . Patient presented to the hospital with a blood pressure of 194/115. He is status post hydralazine 5 mg IV x 1 and Lasix 40 mg IV x 1. Blood pressure is now 158/109, heart rate 113, pulse ox 99% on room air. Patient states he has urinated a significant amount. -EKG: Sinus tachycardia no acute ST changes. -CTA of the chest reveals no large central pulmonary embolus. Cardiomegaly. Mediastinal lymphadenopathy. -CT head: Normal. -CT of the abdomen pelvis with contrast revealed mild intra-abdominal and pelvic ascites. -Ultrasound duplex bilateral lower extremities negative for DVT -Laboratory studies: WBC 8.2, hemoglobin 10.9. Troponin 0.049, 0.039 and 0.039. proBNP 2009. Serum alcohol less than 10. Potassium 4.0 -Home cardiac medications: None. Patient was previously on lisinopril. 02/19/2024 Patient seen and examined on the cardiac stepdown unit. Patient has been maintained on IV Lasix 40 mg twice daily. He continues to urinate a significant amount. He has a negative fluid balance. Blood pressure 158/95, heart rate 98, pulse ox 90% on room air. Echocardiogram is pending. Ferrlecit has been ordered by attending. Abdominal ultrasound revealed no acute process 02/20/2024 Patient seen and examined. Blood pressure 101/66, heart rate 89. Pulse ox 95% on room air. Echocardiogram reveals EF of 30 to 35% with severe global hypokinesia of the LV. Mild MR, mild TR. Patient updated regarding echocardiogram results. Blood pressure is on the low side for which occasions will be adjusted. Stool for occult blood came back negative. Patient is maintained on IV Lasix 40 mg twice daily and has been diuresing well. Blood work reveals sodium 139, potassium 3.6, BUN 12 and creatinine 0.95. 02/21/2024 Patient seen and examined. Patient has been seen by oncology with plan for outpatient scopes with Dr. Aurelia Hooks. Patient has been maintained on IV Lasix which we will transition to oral. Blood pressure 115/80, heart rate 90, pulse ox 98% on room air. BUN 15 creatinine 1, potassium 3.6. Physical examination: Gen: This is a 48-year-old male in no acute distress VS: reviewed HEENT: Head is atraumatic, normocephalic. Pupils equal, round. Sclerae is anicteric. NECK: Supple. No JVD. LUNGS: Clear to auscultation. No wheezes or rhonchi. No intercostal retraction s. HEART: Regular rate and rhythm. No murmur. ABDOMEN: Abdominal distention. No tenderness. EXTREMITIES: Bilateral 1+ pedal edema. No calf tenderness. NEUROLOGICAL: Patient is awake, alert and oriented x3. Assessment: Acute CHF with reduced EF Elevated troponin, flat, secondary to CHF and uncontrolled hypertension Uncontrolled hypertension Iron deficiency anemia Noncompliance with medication Ascites- no significant ascites on imaging Plan: Continue patient on Coreg 12.5 mg twice daily, Farxiga 10 mg daily, losartan 50 mg daily Transition IV Lasix to oral 60 mg twice daily Patient is cleared for discharge from cardiology and may follow-up in the office in 1 week. Nurse practitioner note has been reviewed, I agree with documented findings and plan of care. Patient was seen and examined. Objective - Vital Signs Vital signs: Vital Signs Temp 97.8 F 02/21/24 08:00 Pulse 78 02/21/24 08:00 Resp 18 02/21/24 08:00 BP 102/66 02/21/24 08:00 Pulse Ox 96 02/21/24 08:00 FiO2 Intake & Output 02/20/24 02/21/24 02/21/24 18:59 06:59 18:59 Intake Total 218 1020 222 Output Total 1999 Balance 218 -980 222 Weight 114.1 kg Intake: Intake, IV Titration 100 1020 Amount Sodium Ferric Gluconat- 100 1020 Sucrose 125 mg In Sodium Chloride 0.9% 100 ml @ 100 mls/hr IVPB DAILY [facility] Rx#:[id number] Oral 118 222 Output: Urine 1999 Other: Voiding Method Urinal Urinal # Voids 7 1 - Labs CBC & Chem 7: 02/17/24 22:43 02/21/24 06:04 Labs: Abnormal Lab Results - Last 24 Hours (Table) 02/21/24 Range/Units 06:04 Sodium 136 L (137-145) mmol/L Glucose 157 H (74-99) mg/dL
[2024-02-21] MEDS ORDERED: FUROSEMIDE 20 MG TAB PO SCH (16:00)
--- NOTE | 2024-02-22 16:33 | P.CONS ---
History of Present Illness - Reason for Consult Consult date: 02/21/24 CLAUDIA Requesting physician: Daniel Lin - Chief Complaint abd distension, BLE edema - History of Present Illness Mr. Moya is a 48-year-old male with a PMH of HTN, who we have been asked to see for CLAUDIA. Hgb 10.9 on admit, low MCV,MCH, MCHC. He denies any Hx of anemia p reviously. No epistaxis, gum bleeding, hemoptysis, hematuria, black or bloody stool. Never had colon or EGD, no unintentional wt loss. He came to hospital because swelling in his abd and BLE was progressive and it was getting painful and hard to walk. He had Hx of heavy ETOH. CT AP organomegaly, ascites, BLE doppler, neg for DVT, CT head neg, CTA no PE, mediastinal LAD, cardiomegaly, no lung lesions, ECHO reports LVEF 30-35% Review of Systems 14 point ROS is neg except as stated in HPI Past Medical History Past Medical History: Hypertension History of Any Multi-Drug Resistant Organisms: None Reported Past Surgical History: No Surgical Hx Reported Additional Past Surgical History / Comment(s): Split head open and had stitches. Past Anesthesia/Blood Transfusion Reactions: No Reported Reaction Past Psychological History: Anxiety Smoking Status: Vaper Past Alcohol Use History: Heavy, Occasional Additional Past Alcohol Use History / Comment(s): Patient states he has not drank since 02/06/24 and plans to continue with alcohol use cessation. Past Drug Use History: None Reported - Past Family History Mother Family Medical History: No Reported History Additional Family Medical History / Comment(s): Grandmother from cancer. Father Additional Family Medical History / Comment(s): Underactive thyroid. Grandfather from colon or prostate CA. family Additional Family Medical History / Comment(s): no cad Medications and Allergies Home Medications Medication Instructions Recorded Confirmed Type Dapagliflozin Propanediol [Farxiga] 10 mg PO DAILY #30 tab 02/21/24 Rx Furosemide [Lasix] 40 mg PO BID #60 tablet 02/21/24 Rx Losartan [Cozaar] 50 mg PO DAILY #30 tab 02/21/24 Rx Spironolactone [Aldactone] 25 mg PO DAILY@1300 #30 tablet 02/21/24 Rx carvediloL [Coreg*] 12.5 mg PO BID-W/MEALS #60 tab 02/21/24 Rx Allergies Allergy/AdvReac Type Severity Reaction Status Date / Time No Known Allergies Allergy Verified 02/18/24 09:38 Physical Exam Vitals: Vital Signs Temp Pulse Resp BP Pulse Ox 02/21/24 03:20 97 15 121/81 98 02/20/24 23:39 98 18 132/92 99 02/20/24 20:35 98.1 F 87 17 111/69 97 02/20/24 16:07 96 16 137/92 98 02/20/24 12:08 91 16 117/72 95 Intake and Output 02/20/24 02/21/24 02/21/24 22:59 06:59 14:59 Intake Total 778 360 Output Total 1999 Balance -1222 360 Intake: Intake, IV Titration 660 360 Amount Sodium Ferric Gluconat- 660 360 Sucrose 125 mg In Sodium Chloride 0.9% 100 ml @ 100 mls/hr IVPB DAILY [facility] Rx#:[id number] Oral 118 Output: Urine 1999 Other: Voiding Method Urinal # Voids 7 Weight 114.1 kg - Constitutional General appearance: average body habitus, cooperative, no acute distress - EENT Eyes: anicteric sclerae, EOMI ENT: hearing grossly normal, normal oropharynx - Neck Neck: no lymphadenopathy - Respiratory Respiratory: bilateral: CTA - Cardiovascular Rhythm: regular Heart sounds: normal: S1, S2 Abnormal Heart Sounds: no systolic murmur, no diastolic murmur, no rub, no S3 Gallop, no S4 Gallop, no click, no other leg Peripheral Edema: bilateral: 1+ - Gastrointestinal General gastrointestinal: distended, hepatomegaly, soft, splenomegaly - Integumentary Integumentary: normal - Neurologic Neurologic: CNII-XII intact - Musculoskeletal Musculoskeletal: strength equal bilaterally - Psychiatric Psychiatric: A&O x's 3, appropriate affect, intact judgment & insight Results CBC & Chem 7: 02/17/24 22:43 02/21/24 06:04 Labs: Abnormal Lab Results - Last 24 Hours (Table) 02/21/24 Range/Units 06:04 Sodium 136 L (137-145) mmol/L Glucose 157 H (74-99) mg/dL Chest x-ray: report reviewed CT scan - abdomen: report reviewed CT scan - chest: report reviewed CT Scan - head: report reviewed CT scan - pelvis: report reviewed US - abdomen: report reviewed Assessment and Plan (1) Iron deficiency anemia Status: Acute Priority: Medium Code(s): D50.9 - IRON DEFICIENCY ANEMIA, UNSPECIFIED SNOMED Code(s): 92451901 Plan: CLAUDIA -Labs consistent with the same -IV iron ordered -Recommend upper and lower endoscopy for iron deficiency in a healthy male -Reviewed with pt possible causes of iron deficiency anemia including chronic losses-AVMs, varices. Nutritional deficiencies, malabsorption from ETOH. Marrow damage and slow bone marrow response from ETOH. CHF can be exacerbated by CLAUDIA. -Follow up with Heme out pt for more IV iron and labs Mediastinal LAD -F/U imaging to recheck-due to CHF?
--- NOTE | 2024-02-22 21:27 | P.DS ---
Providers Date of admission: 02/18/24 03:53 Expected date of discharge: 02/21/24 Attending physician: Daniel Lin Consults: 02/18/24 03:44 Consult Physician Urgent Consulting Provider: [facility] Consult Reason/Comments: CHF Do you want consulting provider notified?: Yes, Notify in am 02/20/24 11:49 Consult Physician Routine Consulting Provider: Chong Saunders Consult Reason/Comments: anemia Do you want consulting provider notified?: Yes 02/21/24 09:46 Consult Physician Routine Consulting Provider: Carla Hooks Consult Reason/Comments: iron def anemia, ETOH, ? liver decompensation Do you want consulting provider notified?: Yes [facility] Course: Chief Complaint: Distended abdomen edema Pleasant 48-year-old patient follows with Dr. IBRAHIM. Only medical history is that of hypertension. Patient is accompanied by his girlfriend Melinda at the bedside. Patient for 6 to 8 weeks and noticed abdominal distention gradually getting worse. Bloating. To the point of getting discomfort. Also for last 10 days noticing edema in the lower extremity. Some shortness of breath. No fever no chills. No chest pain some orthopnea. February 18: Patient seen earlier today. Abdominal ultrasound does not state much about cirrhosis. Not much fluid reported. 2D echocardiogram pending. This all could be from cardiac cause. At the right-sided failure/pericardial effusion. Patient making good urine. Up in a chair. Girlfriend at the bedside. Remains on IV Lasix February 19: Breathing better. Edema coming down. Though still present. Remains on IV Lasix every 12. 2D echo showing EF of 30%. Could be related to alcohol or viral event. Patient is receiving IV iron for iron deficiency anemia. Hematology consulted. Care was discussed at length with the patient. Farxiga was added by cardiology. Today Cozaar was added. February 20: Edema much improved. Greatly improved. Keen to go home. Cardiology would have liked him to stay 1 more day but patient keen to go home. Patient will follow-up outpatient with hematology and GI for his iron deficiency anemia. Did receive IV iron. Fluid restriction. Discussion and discharge planning more than 35 minutes Social history: Lives with girlfrienblu Lawrence. Smoked less than half a pack a day for 21 years stopped 6 years ago. Does vaping. About 4 days a week drinks 4 to 5 cans of 12% beer-for last 2 years. Physical examination: VITAL SIGNS: 97.7, 90, 18, 1 02/10/1979, 98% room air GENERAL: BMI 29.5, up in a chair, l comfortable EYES: Pupils equal. Conjunctiva alverto l. HEENT: External appearance of nose and ears normal, oral cavity grossly normal. NECK: JVD normal; masses not palpable. HEART: First and second heart sounds are normal, much improved edema LUNGS: Respiratory rate i normal, diminished breath sounds. ABDOMEN: Soft, less distended. Nontender, liver spleen not palpable, no masses palpable. PSYCH: Alert and oriented x3; mood and affect alverto l. INVESTIGATIONS, reviewed in the clinical context: February 20: Potassium 3.6 creatinine 1 2D echocardiogram: EF 30 to 35%. February 19: Potassium 3.6 creatinine 0.95. Stool occult blood negative Iron 24. TIBC 505. Percent saturation 4.75 transferrin 361 ferritin 15.8. B12 441 folate 18.5 Chest x-ray film personally reviewed by me-cardiomegaly Abdominal ultrasound: Liver shows increased attenuation. No evidence of nodular contour. No suspicious masses. February 16: Sodium 137 potassium 4 BUN 8 creatinine 0.82 Troponin I [id number] proBNP 2009 amylase 45 lipase normal for UA protein 2+ Serum alcohol less than 10 white count 8.2 hemoglobin 10.9 platelets 251 EKG tracing personally reviewed by me-normal sinus rhythm. Ultrasound Doppler lower extremity: No DVT. Chest CTA: Cardiomegaly. Some mediastinal lymphadenopathy Abdomen pelvis with IV contrast CT scan: Hepatomegaly. Splenomegaly. Mild ascites Assessment and plan: -Acute congestive heart failure exacerbation from systolic dysfunction EF 30 to 35%. 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 IV Lasix. Farxiga. Cozaar. Fluid restriction 1800 cc a day Discharged on Farxiga. Lasix 40 mg twice daily. Aldactone. Coreg. Cozaar. -Positive troponin. No ACS picture. Secondary to CHF Cardio following -Microcytic anemia-iron deficiency anemia IV iron ordered GI services not available this week. Hematology consulted, follow-up outpatient Also follow-up outpatient with Dr. Hooks from GI -Obesity BMI 32.9 -Full code Disposition: Home Past Medical History Past Medical History: Hypertension History of Any Multi-Drug Resistant Organisms: None Reported Past Surgical History: No Surgical Hx Reported Past Anesthesia/Blood Transfusion Reactions: No Reported Reaction Smoking Status: Vaper Past Alcohol Use History: Heavy, Occasional Past Drug Use History: None Reported Plan - Discharge Summary Discharge Rx Participant: No New Discharge Prescriptions: New Dapagliflozin Propanediol [Farxiga] 10 mg PO DAILY #30 tab Furosemide [Lasix] 40 mg PO BID #60 tablet Spironolactone [Aldactone] 25 mg PO DAILY@1300 #30 tablet carvediloL [Coreg*] 12.5 mg PO BID-W/MEALS #60 tab Losartan [Cozaar] 50 mg PO DAILY #30 tab Discharge Medication List Dapagliflozin Propanediol [Farxiga] 10 mg PO DAILY #30 tab 02/21/24 [Rx] Furosemide [Lasix] 40 mg PO BID #60 tablet 02/21/24 [Rx] Losartan [Cozaar] 50 mg PO DAILY #30 tab 02/21/24 [Rx] Spironolactone [Aldactone] 25 mg PO DAILY@1300 #30 tablet 02/21/24 [Rx] carvediloL [Coreg*] 12.5 mg PO BID-W/MEALS #60 tab 02/21/24 [Rx] Follow up Appointment(s)/Referral(s): Ritika Koo NPC [Nurse Practitioner] - 04/01/24 2:00 pm (This is appt with Hematology [facility] [employer] [employer]PERVISOR. Address [address] [address]. [phone]) Jose Antonio Ibrahim DO [Primary Care Provider] - 1-2 days (Please call office to make follow up appointment) Gustavo Diego DO [STAFF PHYSICIAN] - 1 Week (Office will call you with appointment date and time. ) Carla Hooks MD [STAFF PHYSICIAN] - 1 Week (EGD colonoscopy for microcytic anemia Message left with office to call patient) Patient Instructions/Handouts: Heart Failure (DC), Hypertension (DC) Activity/Diet/Wound Care/Special Instructions: fluid restrict 1800 cc/day Discharge Disposition: HOME SELF-CARE
== END 2024-02-21 17:00 | disposition home or self-care (01) | DRG 291 ==
LOC: EC 22:22 → 3SCARD 02-18 03:52 → OBSVTOIN 02-18 03:53 → 3SCARD 02-18 06:45
PROVIDERS: ADMIT Hospitalist; ATTEND Hospitalist
DX: I11.0 Hypertensive heart disease with heart failure (principal); I50.21 Acute systolic (congestive) heart failure; R18.8 Other ascites; I31.39 Other pericardial effusion (noninflammatory); I16.0 Hypertensive urgency; R00.0 Tachycardia, unspecified; R59.0 Localized enlarged lymph nodes; D50.9 Iron deficiency anemia, unspecified; R16.1 Splenomegaly, not elsewhere classified; Z68.32 Body mass index [BMI] 32.0-32.9, adult; E66.9 Obesity, unspecified; I42.6 Alcoholic cardiomyopathy; Z79.899 Other long term (current) drug therapy; Z91.148 Patient's other noncompliance with medication regimen for other reason; Z87.891 Personal history of nicotine dependence
CPT/HCPCS: 36415; 70450; 71046; 71275; 74177; 76705; 80048; 80053; 80320; 81001; 82150; 82272; 82607; 82728; 82746; 83540; 83550; 83605; 83690; 83735; 83880; 84484; 85025; 93005; 93306; 93970; 96372; 96374; 96375; 96376; 99285